=== PATIENT | male | born 1940 | race Caucasian/White ===

== ENCOUNTER 2020-12-23 20:30 | Inpatient (IN) | payer OTHER, MEDICARE, BC ==
[~2020-12-23] VITALS: Ht 182.9 cm; Wt 77.7 kg
[2020-12-23 20:20] VITALS: BP 171/77
[2020-12-23] MEDS: IBUPROFEN 400 MG TABLET. PO SCH (22:30)
[2020-12-23] MEDS: traZODone 50 MG TABLET. PO SCH (22:54)
[2020-12-23] MEDS: HYDROcodone/APAP 5/325MG 1 TAB TABLET PO SCH (22:54)
[2020-12-23 23:00] VITALS: BP 181/88
[2020-12-24] MEDS: HYDROcodone/APAP 7.5/325MG 1 TAB TABLET PO PRN ×2 (02:46→20:21)
[2020-12-24 03:00] VITALS: BP 169/75
[2020-12-24 07:23] VITALS: BP 191/83
[2020-12-24] MEDS: IBUPROFEN 400 MG TABLET. PO SCH ×4 (10:30→21:59)
[2020-12-24] MEDS: HYDROcodone/APAP 5/325MG 1 TAB TABLET PO SCH ×4 (10:31→21:00)
[2020-12-24 10:40] VITALS: BP 177/77
[2020-12-24] MEDS ORDERED: MORPHINE SULFATE 2 MG/ML VIAL. IV PRN (12:00)
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
[2020-12-24] MEDS ORDERED: UBIQ75CA PO (13:01)
[2020-12-24] MEDS ORDERED: MV-M1TAB7 PO (13:01)
[2020-12-24] MEDS ORDERED: OMEG-81 PO (13:01)
[2020-12-24] MEDS ORDERED: TRAZ-118 PO (13:01)
[2020-12-24] MEDS ORDERED: DOCU-109 PO (13:01)
[2020-12-24] MEDS ORDERED: [UNRECOGNIZED DRUG - CODE] PO (13:01)
[2020-12-24] MEDS ORDERED: ASCO500C9 PO (13:01)
[2020-12-24] MEDS ORDERED: CYAN50TA PO (13:01)
[2020-12-24] MEDS ORDERED: MELA1TAB44 PO (13:01)
[2020-12-24] MEDS ORDERED: CURC10PO MC (13:01)
[2020-12-24] MEDS ORDERED: CEPH500C PO (13:01)
[2020-12-24] MEDS ORDERED: OMEP20CA16 PO ×2 (13:01)
[2020-12-24] MEDS ORDERED: MAGN400C PO (13:01)
[2020-12-24] MEDS ORDERED: GLUC-117 PO (13:01)
[2020-12-24] MEDS ORDERED: ALFU10TA4 PO (13:01)
[2020-12-24] MEDS ORDERED: LACT1CAP37 PO (13:01)
[2020-12-24] MEDS ORDERED: DUTA0.5C PO (13:01)
[2020-12-24] MEDS ORDERED: MULT-245 PO (13:01)
[2020-12-24] MEDS ORDERED: [UNRECOGNIZED DRUG - OTHER] PO (13:01)
[2020-12-24] MEDS ORDERED: [UNRECOGNIZED DRUG - OTHER] PO (13:01)
[2020-12-24] MEDS ORDERED: MIRA25TA PO (13:01)
[2020-12-24 14:22] VITALS: BP 164/74
[2020-12-24] MEDS: POLYETHYLENE GLYCOL 3350 17 GM PACKET. PO SCH (17:11)
[2020-12-24 19:00] VITALS: BP 207/94
--- NOTE | 2020-12-24 20:00 | NUR ---
Day shift RN adressed 2 lacerrated wound on right forearm ,foam applied, will consult wound nurse.
[2020-12-24] MEDS: cloNIDine HCL 0.2 MG TABLET PO SCH (20:18)
[2020-12-24] MEDS: traZODone 50 MG TABLET. PO SCH (20:18)
[2020-12-24] MEDS: DOCUSATE SODIUM 100 MG CAPSULE. PO SCH (20:18)
[2020-12-24] MEDS ORDERED: MELATONIN PO SCH (21:00)
[2020-12-24 23:00] VITALS: BP 147/77
[2020-12-25 02:59] VITALS: BP 169/82
[2020-12-25 07:11] VITALS: BP 182/86
[2020-12-25] MEDS: TAMSULOSIN 0.4 MG CAP.ER.24H. PO SCH (08:05)
[2020-12-25] MEDS: ASCORBIC ACID 1,000 MG TABLET PO SCH (08:05)
[2020-12-25] MEDS: HYDROcodone/APAP 5/325MG 1 TAB TABLET PO SCH ×4 (08:05→20:01)
[2020-12-25] MEDS: cloNIDine HCL 0.2 MG TABLET PO SCH ×3 (08:05→20:01)
[2020-12-25] MEDS: IBUPROFEN 400 MG TABLET. PO SCH ×4 (08:05→18:49)
[2020-12-25] MEDS: DOCUSATE SODIUM 100 MG CAPSULE. PO SCH ×3 (08:05→20:38)
[2020-12-25] MEDS: PANTOPRAZOLE 40 MG TABLET.DR. PO SCH (08:05)
[2020-12-25] MEDS: POLYETHYLENE GLYCOL 3350 17 GM PACKET. PO SCH (08:06)
[2020-12-25] MEDS: OMEGA-3 FATTY ACIDS/FISH OIL 1,000 MG CAPSULE. PO SCH (08:06)
[2020-12-25] MEDS: NON FORMULARY ITEM (Mirabegron (Myrbetriq) 50 MG) PO SCH (08:18)
[2020-12-25] MEDS: DUTASTERIDE 0.5 MG CAPSULE PO SCH (08:18)
[2020-12-25 08:41] LABS: BASO % 1 % (0-3); EOS # 0.2 x10^3/uL (0.0-0.7); EOS % 6 % (0-3); HEMOGLOBIN 13.6 g/dL (13.0-17.5); LYMPH # 0.6 x10^3/uL (1.0-4.8); LYMPH % 15 % (24-48); MEAN CORPUSCULAR HEMOGLOBIN 33 pg (25-35); MEAN CORPUSCULAR HGB CONC 35 g/dL (31-37); MEAN CORPUSCULAR VOLUME 95 fL (79-100); MONO # 0.4 x10^3/uL (0.0-1.1); MONO % 10 % (0-9); NEUT # 2.7 x10^3/uL (1.8-7.7); NEUT % 68 % (31-73); PLATELET COUNT 177 x10^3/uL (140-400); RED BLOOD COUNT 4.12 x10^6/uL (4.30-5.70); RED CELL DISTRIBUTION WIDTH 13.8 % (11.5-14.5); WHITE BLOOD COUNT 3.9 x10^3/uL (4.0-11.0)
[2020-12-25 08:48] LABS: CALCIUM 8.8 mg/dL (8.5-10.1); CREATININE 1.1 mg/dL (0.7-1.3); GFR 64.1; POTASSIUM 3.7 mmol/L (3.5-5.1)
[2020-12-25 10:34] VITALS: BP 152/76
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
[2020-12-25 14:21] VITALS: BP 108/54
[2020-12-25 19:00] VITALS: BP 131/59
--- NOTE | 2020-12-25 19:03 | NUR ---
patient refused to have skin tears pictured or dressed.
[2020-12-25] MEDS: traZODone 50 MG TABLET. PO SCH (20:01)
[2020-12-25] MEDS ORDERED: traZODone 50 MG TABLET. PO PRN (20:30)
[2020-12-26] VITALS (10 sets, daily range): BP systolic 106–199; BP diastolic 52–100
[2020-12-26] MEDS: PANTOPRAZOLE 40 MG TABLET.DR. PO SCH (07:30)
[2020-12-26 07:42] LABS: BASO % 1 % (0-3); EOS # 0.3 x10^3/uL (0.0-0.7); EOS % 7 % (0-3); HEMATOCRIT 37.4 % (39.0-53.0); HEMOGLOBIN 12.9 g/dL (13.0-17.5); LYMPH # 0.6 x10^3/uL (1.0-4.8); LYMPH % 15 % (24-48); MEAN CORPUSCULAR HEMOGLOBIN 33 pg (25-35); MEAN CORPUSCULAR HGB CONC 35 g/dL (31-37); MEAN CORPUSCULAR VOLUME 94 fL (79-100); MONO # 0.4 x10^3/uL (0.0-1.1); MONO % 10 % (0-9); NEUT # 2.7 x10^3/uL (1.8-7.7); NEUT % 67 % (31-73); PLATELET COUNT 173 x10^3/uL (140-400); RED BLOOD COUNT 3.97 x10^6/uL (4.30-5.70)
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
[2020-12-26 08:02] LABS: CALCIUM 8.7 mg/dL (8.5-10.1); CREATININE 1.1 mg/dL (0.7-1.3); GFR 64.1; POTASSIUM 4.1 mmol/L (3.5-5.1)
[2020-12-26] MEDS: OMEGA-3 FATTY ACIDS/FISH OIL 1,000 MG CAPSULE. PO SCH (09:00)
[2020-12-26] MEDS: TAMSULOSIN 0.4 MG CAP.ER.24H. PO SCH (09:00)
[2020-12-26] MEDS: DUTASTERIDE 0.5 MG CAPSULE PO SCH (09:00)
[2020-12-26] MEDS: ASCORBIC ACID 1,000 MG TABLET PO SCH (09:00)
[2020-12-26] MEDS: IBUPROFEN 400 MG TABLET. PO SCH ×4 (09:00→21:00)
[2020-12-26] MEDS: POLYETHYLENE GLYCOL 3350 17 GM PACKET. PO SCH (09:00)
[2020-12-26] MEDS: DOCUSATE SODIUM 100 MG CAPSULE. PO SCH ×3 (09:00→19:48)
[2020-12-26] MEDS: NON FORMULARY ITEM (Mirabegron (Myrbetriq) 50 MG) PO SCH (09:00)
[2020-12-26 09:06] LABS: PROTHROMBIN TIME PATIENT 13.8 SEC (11.7-14.0)
--- NOTE | 2020-12-26 10:19 | NUR ---
SW following. Discussed with RN, pt from home alone, room air, regular diet, rapid COVID-19 negative. Per RN, pt not having a kyphoplasty and can discharge home today. RN advised no SW needs at this time. RUIZ will continue to follow. Addendum: 12/26/20 at 1224 by MARIAJOSE GOODRICH SW Correction - pt is having a kyphoplasty today, and can still discharge home afterwards. RUIZ will continue to follow.
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
--- NOTE | 2020-12-26 11:51 | RAD ---
EXAMINATION: Magnetic resonance imaging (MRI) of the lumbar spine without contrast 12/26/2020 8:19 AM HISTORY: Compression fracture. TECHNIQUE: Multiplanar multi-weighted MRI of the lumbar spine was performed without intravenous contr ast using the standard lumbar spine protocol. Contrast information: None administered. COMPARISON: CT lumbar spine 12/23/2020. FINDINGS: Alignment of the lumbar spine is normal. Superimposed compression fracture is identified at L2 with 2 5 percent height loss. Marrow edema is identified diffusely with fluid along the superior endplate of L2 suggestive of a liquefied hematoma. There is minimal retropulsion of the superior endplate withou t associated spinal canal stenosis. Conus medullaris terminating at L1. Distal spinal cord signal int ensity is normal in all sequences. There is heterogeneous appearance of the marrow. Osseous hemangiom a is identified at T12. There is mild disc height loss at L4-L5 and L5-S1. There is disc desiccation at all levels sparing L5-S1. There is minimal prevertebral edema at L1-L2. No disruption of the poste rior ligamentous complex. No epidural hematoma is identified. Abdominal aorta is normal in caliber. No suspicious retroperitoneal abnormality is identified. There is mild atrophy of the paraspinal musculature. Kidneys are normal in appearance. Visualized portions of the sacrum appear intact. L1-L2: Mild disc bulge. Mild facet arthropathy. Mild bilateral neuroforaminal stenosis. Mild spinal c anal stenosis. L2-L3: Mild disc bulge with central annular fissure. No significant facet arthropathy. Mild left neur oforaminal stenosis. Mild spinal canal stenosis. L3-L4: There is a mild disc bulge with left foraminal disc protrusion. Mild facet arthropathy. Mild l eft foraminal stenosis. Mild spinal canal stenosis. L4-L5: Moderate disc bulge central annular fissure. Mild facet arthropathy. Moderate bilateral neurof oraminal stenosis. Mild spinal canal stenosis. There is mild left lateral recess stenosis. L5-S1: Disc is normal in configuration. Mild facet arthropathy. No neuroforaminal or spinal canal hernandez nosis. IMPRESSION: Superior endplate compression fracture at L2 with 25 percent height loss. Minimal retropulsion withou t significant paraspinal hematoma or epidural hematoma. Prevertebral edema is noted. No disruption of posterior ligamentous complex. Electronically signed by: Sada Rajan MD (12/26/2020 11:48 AM) [id number]
[2020-12-26] MEDS ORDERED: ceFAZolin SODIUM IV Push 1 GM VIAL. IVP ONE ×2 (13:44→14:45)
[2020-12-26] MEDS ORDERED: fentaNYL PF VIAL 100 MCG/2 ML VIAL ONE (13:44)
[2020-12-26] MEDS ORDERED: MIDAZOLAM HCL/PF 5 MG/5 ML VIAL. ONE (13:44)
[2020-12-26] MEDS ORDERED: LIDOCAINE WITH 8.4% SOD BICARB 3 ML DISP.SYRIN. ONE (13:45)
[2020-12-26] MEDS ORDERED: IOHEXOL 240 MG/ML 50ML VIAL. ONE (13:45)
[2020-12-26] MEDS: cloNIDine HCL 0.2 MG TABLET PO SCH ×3 (14:00→19:48)
[2020-12-26] MEDS ORDERED: hydrALAZINE 20 MG/ML VIAL. ONE (14:39)
[2020-12-26] MEDS ORDERED: hydrALAZINE 20 MG/ML VIAL. IVP ONE (14:45)
[2020-12-26] MEDS ORDERED: MIDAZOLAM HCL/PF 5 MG/5 ML VIAL. IV ONE (14:45)
[2020-12-26] MEDS ORDERED: CONTRAST GIVEN. MC PRN (14:45)
[2020-12-26] MEDS ORDERED: fentaNYL PF VIAL 100 MCG/2 ML VIAL IV ONE (14:45)
[2020-12-26] MEDS ORDERED: IOHEXOL 240 MG/ML 50ML VIAL. IJ ONE (14:45)
[2020-12-26] MEDS ORDERED: LIDOCAINE WITH 8.4% SOD BICARB 3 ML DISP.SYRIN. IJ ONE (14:45)
[2020-12-26] MEDS: HYDROcodone/APAP 5/325MG 1 TAB TABLET PO SCH ×4 (15:52→19:26)
--- NOTE | 2020-12-26 16:10 | RAD ---
Fluoroscopically guided kyphoplasty L2 Indication: compression fracture, pathologic in nature secondary to bone demineralization with severe back pain, refractory to conservative treatment measures, and limited activities of daily living. Fluoro time:8.3 Minutes Dose area product: 54 Gycm2 Moderate sedation: The patient was appropriately monitored by a qualified independent observer throughout the course of the moderate sedation. [id number] sedation time:50 minutes Consent: The risks and benefits of the procedure were discussed with the patient. Informed consent was obtained. The patient was brought to the fluoroscopy suite and placed in the prone position. A timeout procedure was performed. Preprocedural antibiotics were administered. Procedure: The overlying skin was prepped and draped in the usual sterile fashion. All elements of maximal sterile barrier technique including the use of a cap, mask, sterile gown, sterile gloves, large sterile sheet, appropriate hand hygiene, and 2% chlorhexidine for cutaneous antisepsis (or acceptable alternative antiseptic per current guidelines) were followed for this procedure. Using a left transpedicular approach, and direct fluoroscopic guidance, a trocar needle was advanced to the posterior third of the targeted L2 vertebral body. Vertebral augmentation balloon was then coaxially introduced through the needle, into the more central vertebral body and was deployed. A curved cement delivery needle was advanced into the contralateral vertebral body. Contrast opacified polymethylmethacrylate was then very slowly and carefully introduced through the vertebral augmentation needle, using strict fluoroscopic control. Once adequate filling had been achieved the needles were removed and manual pressure was held. No significant extravasation or complication was identified. Sterile dressing was applied. Patient tolerated the procedure well, without apparent complication. Impression: Fluoroscopically guided kyphoplasty, L2
[2020-12-26] MEDS ORDERED: METHOCARBAMOL 500 MG TABLET PO PRN (16:30)
[2020-12-26] MEDS ORDERED: HYDROcodone/APAP 10/325 1 TAB TABLET PO PRN (16:30)
--- NOTE | 2020-12-26 17:10 | NUR ---
Wound Care Pt refused wound care due to pain in his back, will try again tomorrow,
[2020-12-26] MEDS: traZODone 50 MG TABLET. PO SCH ×2 (19:49→21:00)
--- NOTE | 2020-12-26 21:00 | NUR ---
2100 dose of motrin given at 1920 per pt. request and 2100 dose of trazodone given at 1948 per pt's request.
[2020-12-27 03:00] VITALS: BP 108/53
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
[2020-12-27 07:00] VITALS: BP 120/58
[2020-12-27 08:42] LABS: BASO % 1 % (0-3); EOS # 0.2 x10^3/uL (0.0-0.7); EOS % 4 % (0-3); HEMATOCRIT 38.9 % (39.0-53.0); LYMPH # 0.6 x10^3/uL (1.0-4.8); LYMPH % 14 % (24-48); MEAN CORPUSCULAR HEMOGLOBIN 32 pg (25-35); MEAN CORPUSCULAR HGB CONC 34 g/dL (31-37); MEAN CORPUSCULAR VOLUME 95 fL (79-100); MONO # 0.5 x10^3/uL (0.0-1.1); MONO % 12 % (0-9); NEUT % 70 % (31-73); PLATELET COUNT 175 x10^3/uL (140-400); RED BLOOD COUNT 4.08 x10^6/uL (4.30-5.70); RED CELL DISTRIBUTION WIDTH 14.2 % (11.5-14.5); WHITE BLOOD COUNT 4.2 x10^3/uL (4.0-11.0)
[2020-12-27] MEDS: POLYETHYLENE GLYCOL 3350 17 GM PACKET. PO SCH (09:00)
[2020-12-27] MEDS: cloNIDine HCL 0.2 MG TABLET PO SCH (09:00)
[2020-12-27] MEDS: NON FORMULARY ITEM (Mirabegron (Myrbetriq) 50 MG) PO SCH (09:00)
[2020-12-27] MEDS: ASCORBIC ACID 1,000 MG TABLET PO SCH (09:00)
[2020-12-27] MEDS: HYDROcodone/APAP 5/325MG 1 TAB TABLET PO SCH (09:00)
[2020-12-27] MEDS: OMEGA-3 FATTY ACIDS/FISH OIL 1,000 MG CAPSULE. PO SCH ×2 (09:00→10:03)
[2020-12-27 09:01] LABS: CALCIUM 9.2 mg/dL (8.5-10.1); CREATININE 1.7 mg/dL (0.7-1.3); GFR 38.8; POTASSIUM 3.9 mmol/L (3.5-5.1)
[2020-12-27] MEDS: DUTASTERIDE 0.5 MG CAPSULE PO SCH (10:01)
[2020-12-27] MEDS: PANTOPRAZOLE 40 MG TABLET.DR. PO SCH (10:01)
[2020-12-27] MEDS: IBUPROFEN 400 MG TABLET. PO SCH (10:01)
[2020-12-27] MEDS: TAMSULOSIN 0.4 MG CAP.ER.24H. PO SCH (10:02)
[2020-12-27] MEDS: DOCUSATE SODIUM 100 MG CAPSULE. PO SCH (10:06)
--- NOTE | 2020-12-27 10:43 | PDOC3 ---
Discharge Summary Visit Information Date of Admission: Dec 24, 2020 Date of Discharge: Dec 27, 2020 Brief Hospital Course Allergies Allergies Coded Allergies Type Severity Reaction Last Updated Verified No Known Drug Allergies 12/23/20 No Vital Signs Vital Signs Date Time Temp Pulse Resp B/P (MAP) Pulse Ox O2 Delivery O2 Flow Rate FiO2 12/27/20 07:00 97.8 55 16 120/58 (78) 95 Room Air 97.8 12/26/20 14:55 2.0 Lab Results Laboratory Tests Test 12/25/20 19:08 12/26/20 06:05 12/27/20 07:20 Coronavirus (PCR) Not detected (Not Detected) SARS-CoV-2 Antigen (Rapid) Negative (NEGATIVE) White Blood Count 4.0 x10^3/uL (4.0-11.0) 4.2 x10^3/uL (4.0-11.0) Red Blood Count 3.97 x10^6/uL (4.30-5.70) 4.08 x10^6/uL (4.30-5.70) Hemoglobin 12.9 g/dL (13.0-17.5) 13.0 g/dL (13.0-17.5) Hematocrit 37.4 % (39.0-53.0) 38.9 % (39.0-53.0) Mean Corpuscular Volume 94 fL (79-100) 95 fL (79-100) Mean Corpuscular Hemoglobin 33 pg (25-35) 32 pg (25-35) Mean Corpuscular Hemoglobin Concent 35 g/dL (31-37) 34 g/dL (31-37) Red Cell Distribution Width 14.0 % (11.5-14.5) 14.2 % (11.5-14.5) Platelet Count 173 x10^3/uL (140-400) 175 x10^3/uL (140-400) Neutrophils (%) (Auto) 67 % (31-73) 70 % (31-73) Lymphocytes (%) (Auto) 15 % (24-48) 14 % (24-48) Monocytes (%) (Auto) 10 % (0-9) 12 % (0-9) Eosinophils (%) (Auto) 7 % (0-3) 4 % (0-3) Basophils (%) (Auto) 1 % (0-3) 1 % (0-3) Neutrophils # (Auto) 2.7 x10^3/uL (1.8-7.7) 3.0 x10^3/uL (1.8-7.7) Lymphocytes # (Auto) 0.6 x10^3/uL (1.0-4.8) 0.6 x10^3/uL (1.0-4.8) Monocytes # (Auto) 0.4 x10^3/uL (0.0-1.1) 0.5 x10^3/uL (0.0-1.1) Eosinophils # (Auto) 0.3 x10^3/uL (0.0-0.7) 0.2 x10^3/uL (0.0-0.7) Basophils # (Auto) 0.0 x10^3/uL (0.0-0.2) 0.0 x10^3/uL (0.0-0.2) Prothrombin Time 13.8 SEC (11.7-14.0) Prothromb Time International Ratio 1.1 (0.8-1.1) Sodium Level 142 mmol/L (136-145) 141 mmol/L (136-145) Potassium Level 4.1 mmol/L (3.5-5.1) 3.9 mmol/L (3.5-5.1) Chloride Level 107 mmol/L (98-107) 105 mmol/L (98-107) Carbon Dioxide Level 28 mmol/L (21-32) 25 mmol/L (21-32) Anion Gap 7 (6-14) 11 (6-14) Blood Urea Nitrogen 28 mg/dL (8-26) 38 mg/dL (8-26) Creatinine 1.1 mg/dL (0.7-1.3) 1.7 mg/dL (0.7-1.3) Estimated GFR (Cockcroft-Gault) 64.1 38.8 Glucose Level 87 mg/dL (70-99) 96 mg/dL (70-99) Calcium Level 8.7 mg/dL (8.5-10.1) 9.2 mg/dL (8.5-10.1) Laboratory Tests Test 12/27/20 07:20 White Blood Count 4.2 x10^3/uL (4.0-11.0) Red Blood Count 4.08 x10^6/uL (4.30-5.70) Hemoglobin 13.0 g/dL (13.0-17.5) Hematocrit 38.9 % (39.0-53.0) Mean Corpuscular Volume 95 fL (79-100) Mean Corpuscular Hemoglobin 32 pg (25-35) Mean Corpuscular Hemoglobin Concent 34 g/dL (31-37) Red Cell Distribution Width 14.2 % (11.5-14.5) Platelet Count 175 x10^3/uL (140-400) Neutrophils (%) (Auto) 70 % (31-73) Lymphocytes (%) (Auto) 14 % (24-48) Monocytes (%) (Auto) 12 % (0-9) Eosinophils (%) (Auto) 4 % (0-3) Basophils (%) (Auto) 1 % (0-3) Neutrophils # (Auto) 3.0 x10^3/uL (1.8-7.7) Lymphocytes # (Auto) 0.6 x10^3/uL (1.0-4.8) Monocytes # (Auto) 0.5 x10^3/uL (0.0-1.1) Eosinophils # (Auto) 0.2 x10^3/uL (0.0-0.7) Basophils # (Auto) 0.0 x10^3/uL (0.0-0.2) Sodium Level 141 mmol/L (136-145) Potassium Level 3.9 mmol/L (3.5-5.1) Chloride Level 105 mmol/L (98-107) Carbon Dioxide Level 25 mmol/L (21-32) Anion Gap 11 (6-14) Blood Urea Nitrogen 38 mg/dL (8-26) Creatinine 1.7 mg/dL (0.7-1.3) Estimated GFR (Cockcroft-Gault) 38.8 Glucose Level 96 mg/dL (70-99) Calcium Level 9.2 mg/dL (8.5-10.1) Brief Hospital Course Mr. Vitale is a 80 old male who presented with lumbar compression fracture. He had MRI of the spine that showed superior endplate compression fracture at L2 with 25 percent height loss. Consultations placed to PM&R and IR. He had fluoroscopically guided L2 kyphoplasty. He was discharged with 1 week Robaxin. Discharge Information Condition at Discharge: Stable Follow Up: Weeks Disposition/Orders: D/C to Home Scheduled Alfuzosin Hcl (Alfuzosin Hcl) 10 Mg Tab.er.24h, 10 MG PO DAILY for bph, (Reported) Entered as Reported by: JAMES PAIZ RN on 12/24/201300 Last Action: Converted on 12/24/201950 by PRITESH BALLARD Ascorbic Acid (Vitamin C) 500 Mg Capsule, 1,000 MG PO DAILY for bone health, (Reported) Entered as Reported by: JAMES PAIZ RN on 12/24/201300 Last Action: Converted on 12/24/201950 by PRITESH BALLARD Curcumin (Curcumin) 10 Gm Powder, 600 MG MC DAILY for anti-inflammatory, (Reported) Entered as Reported by: JAMES PAIZ RN on 12/24/201300 Last Action: New Order on 12/24/201300 by JAMES PAIZ RN Cyanocobalamin (Vitamin B-12) (Vitamin B-12) 50 Mcg Tablet, 6 MCG PO DAILY for Vitamin, (Reported) Entered as Reported by: JAMES PAIZ RN on 12/24/201300 Last Action: New Order on 12/24/201300 by JAMES PAIZ RN Docusate Sodium (Colace) 100 Mg Capsule, 2 CAP PO TID for Soften stools for 30 Days, #180 Ref 0 (Reported) Entered as Reported by: JAMES PAIZ RN on 12/24/201300 Last Action: Continued on 12/24/201927 by JAMES PAIZ RN Dutasteride (Avodart) 0.5 Mg Capsule, 0.5 MG PO DAILY for bph, (Reported) Entered as Reported by: JAMES PAIZ RN on 12/24/201300 Last Action: Continued on 12/24/201927 by JAMES PAIZ RN Glucosam/Chondroit/C/Manganese (Cosamin Ds Capsule) 1 Each Capsule, 3 EACH PO DAILY for joint health, (Reported) Entered as Reported by: JAMES PAIZ RN on 12/24/201300 Last Action: New Order on 12/24/201300 by JAMES PAIZ RN Lactobacillus Combo No.10 (Probiotic) 1 Each Capsule, 2 TAB PO DAILY for aid in digestion for 30 Days, #60 Ref 0 (Reported) Entered as Reported by: JAMES PAIZ RN on 12/24/201300 Last Action: New Order on 12/24/201300 by JAMES PAIZ RN Magnesium Oxide (Magnesium) 400 Mg Capsule, 1 CAP PO DAILY for vitamin for 30 Days, #30 Ref 0 (Reported) Entered as Reported by: JAMES PAIZ RN on 12/24/201300 Last Action: New Order on 12/24/201300 by JAMES PAIZ RN Melatonin (Melatonin) 1 Mg Tablet, 9 TAB PO QHS for sleep for 30 Days, #270 Ref 0 (Reported) Entered as Reported by: JAMES PAIZ RN on 12/24/201300 Last Action: Converted on 12/24/201927 by JAMES PAIZ RN Mirabegron (Myrbetriq) 50 Mg Tab.er.24h, 50 MG PO DAILY for overactive bladder, (Reported) Entered as Reported by: JAMES PAIZ RN on 12/24/201300 Last Action: Converted on 12/24/201927 by JAMES PAIZ RN Multivitamin (Multi Vitamin Daily) 1 Each Tablet, 1 TAB PO DAILY for multivitamin for 30 Days, #30 Ref 0 (Reported) Entered as Reported by: JAMES PAIZ RN on 12/24/201300 Last Action: New Order on 12/24/201300 by JAMES PAIZ RN Mv-Mn/Iron/Fa/Herbal Cmplx#190 (Vitamin D3 Complete Caplet) 1 Each Tablet, 2,000 INTLU PO DAILY for bone health, (Reported) Entered as Reported by: JAMES PAIZ RN on 12/24/201300 Last Action: New Order on 12/24/201300 by JAMES PAIZ RN [place]-3S/Dha/Epa/Fish Oil/D3 (Cardio [place] Benefits Softgel) 1 Each Capsule, 1,100 MG PO DAILY for heart health, (Reported) Entered as Reported by: JAMES PAIZ RN on 12/24/201300 Last Taken: 1,100 mg on Unknown Date & Time Last Action: New Order on 12/24/201300 by JAMES PAIZ RN Omeprazole (Omeprazole) 20 Mg Capsule.dr, 20 MG PO BIDACBL for GERD, (Reported) Entered as Reported by: JAMES PAIZ RN on 12/24/201300 Last Action: Converted on 12/24/201950 by PRITESH BALLARD Phytosterol/Om-3/Dha/Epa/Fish (Cardiosterol Capsule) 1 Each Capsule, 4 EACH PO DAILY for heart health, (Reported) Entered as Reported by: JAMES PAIZ RN on 12/24/201300 Last Action: Converted on 12/24/201950 by PRITESH BALLARD Trazodone Hcl (Trazodone Hcl) 50 Mg Tablet, 3 TAB PO QHS for sleep, #30 Ref 1 (Reported) Entered as Reported by: JAMES PAIZ RN on 12/24/201300 Last Action: Edited on 12/26/201914 by PA LOPEZ Ubiquinone (Ultra Coq10) 75 Mg Capsule, 300 MG PO DAILY for heart health, (Reported) Entered as Reported by: JAMES PAIZ RN on 12/24/201300 Last Action: New Order on 12/24/201300 by JAMES PAIZ RN Discontinued Medications Cephalexin (Cephalexin) 500 Mg Capsule, 2,000 MG PO PRN PRN for PER PROTOCOL, (Reported) Entered as Reported by: JAMES PAIZ RN on 12/24/201300 Last Action: New Order on 12/24/201300 by JAMES PAIZ RN Omeprazole (Omeprazole) 20 Mg Capsule.dr, 20 MG PO BIDACLD for GERD, (Reported) Entered as Reported by: JAMES PAIZ RN on 12/24/201300 Last Action: New Order on 12/24/201300 by JAMES PAIZ RN [cardio whey] , 1 TAB PO DAILY, (Reported) Entered as Reported by: JAMES PAIZ RN on 12/24/201300 Last Action: New Order on 12/24/201300 by JAMES PAIZ RN [magnesium w multivit] , 1 TAB PO DAILY, (Reported) Entered as Reported by: JAMES PAIZ RN on 12/24/201300 Last Action: New Order on 12/24/201300 by JAMES PAIZ RN Justicifation of Admission Dx: Justifications for Admission: Justification of Admission Dx: Yes (L2 compression fracture, physical debility) GERI FRANCO MD Dec 27, 2020 10:43
[2020-12-27 11:00] VITALS: BP 131/62
--- NOTE | 2020-12-27 11:06 | NUR ---
SS following up with discharge planning. SS reviewed pt chart and discussed with pt RN. Pt is currently on room air. COVID19 negative. No PT/OT needs. Discharge order on the chart for home with self care.
== END 2020-12-27 11:40 | disposition home or self-care (01) | DRG 517 ==
LOC: 4 NORTH 20:30
PROVIDERS: ADMIT Family Medicine; ATTEND Family Medicine
PROC: 0QS03ZZ Reposition Lumbar Vertebra, Percutaneous Approach (ICD-10-PCS; principal; 2020-12-23)
PROC: 0QU03JZ Supplement Lumbar Vertebra with Synthetic Substitute, Percutaneous Approach (ICD-10-PCS; 2020-12-23)
DX: M48.56XA Collapsed vertebra, not elsewhere classified, lumbar region, initial encounter for fracture (principal); M19.90 Unspecified osteoarthritis, unspecified site; M51.36 Other intervertebral disc degeneration, lumbar region; Z96.643 Presence of artificial hip joint, bilateral; Z20.822 Contact with and (suspected) exposure to COVID-19; Z83.3 Family history of diabetes mellitus
CPT/HCPCS: 22514; 36415; 72148; 80048; 85025; 85610; 87426; 99152; 99153; C1713; J0360; J0690; J2250; J3010; J3490; Q9966; U0003; G0378

== ENCOUNTER 2021-11-06 13:35 | Inpatient (IN) | payer MEDICARE, BC ==
[~2021-11-06] VITALS: Ht 182.9 cm; Wt 82.0 kg
[2021-11-06] VITALS (8 sets, daily range): BP systolic 122–149; BP diastolic 66–76
[~2021-11-06 13:35] MED LIST: ALFU10TA4 PO; ASCO500C9 PO; CEPH500C PO; CURC10PO MC; CYAN50TA PO; DOCU-109 PO; DUTA0.5C PO; GLUC-117 PO; LACT1CAP37 PO; MAGN400C PO; MELA1TAB44 PO; MIRA25TA PO; MULT-245 PO; MV-M1TAB7 PO; OMEG-81 PO; OMEP20CA16 PO; TRAZ-118 PO; UBIQ75CA PO; [UNRECOGNIZED DRUG - CODE] PO; [UNRECOGNIZED DRUG - OTHER] PO; [UNRECOGNIZED DRUG - OTHER] PO
[2021-11-06 14:14] LABS: BASO % 1 % (0-3); EOS # 0.1 x10^3/uL (0.0-0.7); EOS % 4 % (0-3); HEMATOCRIT 36.7 % (39.0-53.0); HEMOGLOBIN 12.8 g/dL (13.0-17.5); LYMPH # 0.5 x10^3/uL (1.0-4.8); LYMPH % 16 % (24-48); MEAN CORPUSCULAR HEMOGLOBIN 32 pg (25-35); MEAN CORPUSCULAR HGB CONC 35 g/dL (31-37); MEAN CORPUSCULAR VOLUME 92 fL (79-100); MONO # 0.3 x10^3/uL (0.0-1.1); MONO % 10 % (0-9); NEUT # 2.3 x10^3/uL (1.8-7.7); NEUT % 69 % (31-73); PLATELET COUNT 185 x10^3/uL (140-400); RED BLOOD COUNT 3.98 x10^6/uL (4.30-5.70); RED CELL DISTRIBUTION WIDTH 14.6 % (11.5-14.5); WHITE BLOOD COUNT 3.4 x10^3/uL (4.0-11.0)
[2021-11-06 14:23] LABS: CALCIUM 8.3 mg/dL (8.5-10.1); CREATININE 1.1 mg/dL (0.7-1.3); GFR 63.9; POTASSIUM 3.7 mmol/L (3.5-5.1)
[2021-11-06 14:27] LABS: ALBUMIN 3.3 g/dL (3.4-5.0); TOTAL BILIRUBIN 0.5 mg/dL (0.2-1.0); TOTAL PROTEIN 6.5 g/dL (6.4-8.2)
--- NOTE | 2021-11-06 14:45 | PHYS DOC ---
Past Medical History Past Medical History: Anxiety, GERD, Hypertension General Adult EDM: Chief Complaint: DIZZY/LIGHT HEADED HPI: HPI: Patient is a 81 year old male who presents to the ED today to be evaluated for bradycardia and syncope. Patient was [place] a local library, he was noted to be slumped over on a chair. EMS was called, when they arrived patient had a heart rate in the 20s. He was given atropine. Heart rate came up to the 50s. He arrives in the ED with a heart rate of high 40s-50. He states he was dizzy and states he never passed out. He states he takes blood pressure medicine but does not have a diagnosis of hypertension. He states he takes the medicine from a personal friend who is a doctor (Dr. Kessler) patient does not have the name of the medicine. Patient denies any chest pain or shortness of breath I spoke to patient's daughter Jaida, she states history of hypertension, anxiety and acid reflux Review of Systems: Review of Systems: Constitutional: Denies fever or chills. [] Eyes: Denies change in visual acuity. [] HENT: Denies nasal congestion or sore throat. [] Respiratory: Denies cough or shortness of breath. [] Cardiovascular: Reports syncope, bradycardia GI: Denies abdominal pain, nausea, vomiting, bloody stools or diarrhea. [] : Denies dysuria. [] Musculoskeletal: Denies back pain or joint pain. [] Integument: Denies rash. [] Neurologic: EMS reports possible syncope. Denies headache, focal weakness or sensory changes. [] ] Psychiatric: Denies depression or anxiety. [] Heart Score: C/O Chest Pain: N/A Risk Factors: Risk Factors: DM, Current or recent (<one month) smoker, HTN, HLP, family history of CAD, obesity. Risk Scores: Score 0 - 3: 2.5% MACE over next 6 weeks - Discharge Home Score 4 - 6: 20.3% MACE over next 6 weeks - Admit for Clinical Observation Score 7 - 10: 72.7% MACE over next 6 weeks - Early Invasive Strategies Allergies: Allergies: Allergies Coded Allergies Type Severity Reaction Last Updated Verified No Known Drug Allergies 12/23/20 No Physical Exam: PE: Constitutional: Well developed, well nourished, no acute distress, non-toxic appearance. [] HENT: Normocephalic, atraumatic, bilateral external ears normal, oropharynx moist, no oral exudates, nose normal. [] Eyes: PERRLA, EOMI, conjunctiva normal, no discharge. [] Neck: Normal range of motion, no tenderness, supple, no stridor. [] Cardiovascular: Bradycardia Lungs & Thorax: Bilateral breath sounds clear to auscultation [] Abdomen: Bowel sounds normal, soft, no tenderness, no masses, no pulsatile masses. [] Skin: Warm, dry, no erythema, no rash. [] Back: No tenderness, no CVA tenderness. [] Extremities: No tenderness, no cyanosis, no clubbing, ROM intact, no edema. [] Neurologic: Alert and oriented X 3, normal motor function, normal sensory function, no focal deficits noted. Cranial nerves II through XII intact Psychologic: Affect normal, judgement normal, mood normal. [] Current Patient Data: Labs: Laboratory Tests Test 11/06/21 13:50 11/06/21 13:56 White Blood Count 3.4 x10^3/uL (4.0-11.0) L Red Blood Count 3.98 x10^6/uL (4.30-5.70) L Hemoglobin 12.8 g/dL (13.0-17.5) L Hematocrit 36.7 % (39.0-53.0) L Mean Corpuscular Volume 92 fL (79-100) Mean Corpuscular Hemoglobin 32 pg (25-35) Mean Corpuscular Hemoglobin Concent 35 g/dL (31-37) Red Cell Distribution Width 14.6 % (11.5-14.5) H Platelet Count 185 x10^3/uL (140-400) Neutrophils (%) (Auto) 69 % (31-73) Lymphocytes (%) (Auto) 16 % (24-48) L Monocytes (%) (Auto) 10 % (0-9) H Eosinophils (%) (Auto) 4 % (0-3) H Basophils (%) (Auto) 1 % (0-3) Neutrophils # (Auto) 2.3 x10^3/uL (1.8-7.7) Lymphocytes # (Auto) 0.5 x10^3/uL (1.0-4.8) L Monocytes # (Auto) 0.3 x10^3/uL (0.0-1.1) Eosinophils # (Auto) 0.1 x10^3/uL (0.0-0.7) Basophils # (Auto) 0.0 x10^3/uL (0.0-0.2) Troponin I High Sensitivity 8 ng/L (4-75) VR-Npe-E-Type Natriuretic Peptide 95 pg/mL (0-449) Thyroid Stimulating Hormone (TSH) 3.246 uIU/mL (0.358-3.74) Sodium Level 134 mmol/L (136-145) L Potassium Level 3.7 mmol/L (3.5-5.1) Chloride Level 97 mmol/L (98-107) L Carbon Dioxide Level 28 mmol/L (21-32) Anion Gap 9 (6-14) Blood Urea Nitrogen 25 mg/dL (8-26) Creatinine 1.1 mg/dL (0.7-1.3) Estimated GFR (Cockcroft-Gault) 63.9 BUN/Creatinine Ratio 23 (6-20) H Glucose Level 92 mg/dL (70-99) Calcium Level 8.3 mg/dL (8.5-10.1) L Magnesium Level 2.0 mg/dL (1.8-2.4) Total Bilirubin 0.5 mg/dL (0.2-1.0) Aspartate Amino Transferase (AST) 14 U/L (15-37) L Alanine Aminotransferase (ALT) 20 U/L (16-63) Alkaline Phosphatase 76 U/L (46-116) Total Protein 6.5 g/dL (6.4-8.2) Albumin 3.3 g/dL (3.4-5.0) L Albumin/Globulin Ratio 1.0 (1.0-1.7) Lipase 59 U/L (73-393) L Laboratory Tests 11/06/21 13:50 Laboratory Tests 11/06/21 13:56 EKG: EK interpreted by Dr. Chu sinus rhythm heart rate 59 no STEMI [] Radiology/Procedures: Radiology/Procedures: []PROCEDURE: CT HEAD WO CONTRAST EXAMINATION: CT head without IV contrast INDICATION:81 years, Male, syncope. COMPARISON: None TECHNIQUE: Spiral acquisition of contiguous images from the skull base to the vertex were obtained. Soft tissue and bone window algorithms were reviewed. Exposure: One or more of the following individualized dose reduction techniques were utilized for this examination: 1. Automated exposure control 2. Adjustment of the mA and/or kV according to patient size 3. Use of iterative reconstruction technique. FINDINGS: Neither mass, midline shift, intracranial hemorrhage, acute ischemic changes, nor extraaxial fluid collections are seen. There is a area of hypoattenuation in the right frontal centrum semiovale, may represent a focus of late subacute or chronic infarct. Mild brain parenchymal volume loss. Supratentorial periv entricular white matter hypodensities, indeterminate but most likely representing chronic microangiopathic disease. The ventricular system is within normal limits of variation. Intracranial atherosclerotic disease. The paranasal sinuses, mastoid air cells, and middle ears are clear.The orbital contents appear within normal limits. Soft tissues are unremarkable. Calvarium is intact. IMPRESSION: 1. Hypoattenuating area in the right frontal subcortical white matter may represent late subacute or chronic infarct. Further evaluation with MRI may be considered. 2. Supratentorial periventricular white matter hypodensities, indeterminate but most likely representing chronic microangiopathic disease. These findings were discussed with the ED provider at 11/06/2021 3:[address] Mercado Electronically signed by: Selina Mercado DO (11/06/2021 3:04 PM) [facility] DICTATED and SIGNED BY: SELINA MERCADO DO DATE: 11/06/21 [id number] 0 PROCEDURE: PORTABLE CHEST 1V XR CHEST 1V History: Reason: syncope / Spl. Instructions: / History: Comparison: None. Findings: Linear left basilar opacities. No pleural effusion. No pneumothorax. Normal h eart size. Chronic ununited left mid clavicular fracture. Distal right clavicular resorption or postoperative changes. Impression: 1. Mild linear left basilar opacities, likely atelectasis. Electronically signed by: Barrington Shah DO (11/06/2021 2:53 PM) [id number] DICTATED and SIGNED BY: BARRINGTON SHAH DO DATE: 11/06/21 [id number] 0 Course & Med Decision Making: Course & Med Decision Making Pertinent Labs and Imaging studies reviewed. (See chart for details) This is a 81-year-old male patient presenting to the ED today via EMS after being found slumped over in the [place] bradycardia with a heart rate in the 20s. Was given atropine. Heart rates in the 40-50s on arrival. Patient awake alert oriented x3. Vitals on arrival to the ED temperature 97.5, heart rate 58, respirations 16, blood pressure 137/62, O2 sats 96% CBC with a WBC of 3.4, hemoglobin 12.8, hematocrit 36.7. CMP with nothing acute. Chest x-ray is negative. CT of the head noted for right frontal subcortical white matter may represent late subacute or chronic infarct NIH scale is negative. Spoke with Dr. Dorado who will f/u with patient Spoke with Dr. Garcia who accepted patient for admission. Spoke with Jeanine Cardiology DISTRICT REPRESENTATIVE who will f/u with patient. Stacy Disclaimer: Stacy Disclaimer: This electronic medical record was generated, in whole or in part, using a voice recognition dictation system. Departure Departure Impression: Primary Impression: Syncope Qualified Codes: R55 - Syncope and collapse Additional Impressions: Bradycardia CVA (cerebral vascular accident) Qualified Codes: I63.9 - Cerebral infarction, unspecified Disposition: 09 ADMITTED INPATIENT Condition: STABLE Referrals: OLIVE DESIR (PCP) CRISTIAN MARSH RESIDENT SERVICES SUPERVISOR Nov 06, 2021 14:45
--- NOTE | 2021-11-06 14:56 | RAD ---
XR CHEST 1V History: Reason: syncope / Spl. Instructions: / History: Comparison: None. Findings: Linear left basilar opacities. No pleural effusion. No pneumothorax. Normal heart size. Chronic ununi stephie left mid clavicular fracture. Distal right clavicular resorption or postoperative changes. Impression: 1. Mild linear left basilar opacities, likely atelectasis. Electronically signed by: Barrington Shah DO (11/06/2021 2:53 PM) [id number]
--- NOTE | 2021-11-06 15:06 | RAD ---
EXAMINATION: CT head without IV contrast INDICATION:81 years, Male, syncope. COMPARISON: None TECHNIQUE: Spiral acquisition of contiguous images from the skull base to the vertex were obtained. Soft tissue and bone window algorithms were reviewed. Exposure: One or more of the following individualized dose reduction techniques were utilized for thi s examination: 1. Automated exposure control 2. Adjustment of the mA and/or kV according to patient size 3. Use of iterative reconstruction technique. FINDINGS: Neither mass, midline shift, intracranial hemorrhage, acute ischemic changes, nor extraaxial fluid co llections are seen. There is a area of hypoattenuation in the right frontal centrum semiovale, may re present a focus of late subacute or chronic infarct. Mild brain parenchymal volume loss. Supratentori al periventricular white matter hypodensities, indeterminate but most likely representing chronic bety roangiopathic disease. The ventricular system is within normal limits of variation. Intracranial athe rosclerotic disease. The paranasal sinuses, mastoid air cells, and middle ears are clear.The orbital contents appear withi n normal limits. Soft tissues are unremarkable. Calvarium is intact. IMPRESSION: 1. Hypoattenuating area in the right frontal subcortical white matter may represent late subacute or chronic infarct. Further evaluation with MRI may be considered. 2. Supratentorial periventricular white matter hypodensities, indeterminate but most likely represen ting chronic microangiopathic disease. These findings were discussed with the ED provider at 11/06/2021 3:[address] Mercado Electronically signed by: Pablo Mercado DO (11/06/2021 3:04 PM) [facility]
[2021-11-06 17:17] LABS: BILIRUBIN,URINE NEGATIVE (NEG); CLARITY,URINE CLEAR; COLOR,URINE YELLOW; NITRITE,URINE NEGATIVE (NEG); PROTEIN,URINE NEGATIVE (NEG-TRACE)
[2021-11-06 17:26] LABS: BARBITURATES NEG (NEG); BENZODIAZEPINES POS (NEG); CANNABINOIDS NEG (NEG); COCAINE NEG (NEG); METHADONE NEG (NEG); OPIATES NEG (NEG); PHENCYCLIDINE NEG (NEG)
[2021-11-06] MEDS ORDERED: MORPHINE SULFATE 2 MG/ML INJ. IVP PRN (17:30)
[2021-11-06] MEDS ORDERED: ACETAMINOPHEN 325 MG TABLET. PO PRN (17:30)
[2021-11-06] MEDS ORDERED: ONDANSETRON PF 4 MG/2 ML VIAL. IVP PRN (17:30)
[2021-11-06 17:34] LABS: HYALINE CASTS, URINE MODERATE /HPF
[2021-11-06 17:35] LABS: BACTERIA,URINE 0 /HPF (0-FEW); WBC,URINE 0 /HPF (0-4)
[2021-11-06 17:40] LABS: AMPHETAMINE/METHAMPHETAMINE NEG (NEG)
[2021-11-06] MEDS ORDERED: POTASSIUM CHLORIDE 20 MEQ TABLET.ER. PO ONE (17:45)
--- NOTE | 2021-11-06 18:15 | PDOC1 ---
History and Physical Date of Admission Date of Admission DATE: 11/06/21 TIME: 18:10 Identification/Chief Complaint Chief Complaint syncope Source Source: Chart review, Patient History of Present Illness History of Present Illness Mr. Gutierrez is a 81 year old male admit [place] a sync[place]. Ani slumped over in a chair, not responsive, EMS called, HR was < 20 there, atropine given HR then 40's is about 55 now. sinus He states he was dizzy and states he never passed out. He states he takes blood pressure medicine but does not have a diagnosis of hypertension. 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 his primary care is Dr. Kessler, he sees him at [place] Past Medical History Past Medical History htn, anxiety, GERD Cardiovascular: HTN Musculoskeletal: low back pain ENT: No pertinent hx Renal/: No pertinent hx Endocrine: No pertinent hx Dermatology: No pertinent hx Past Surgical History Past Surgical History: No pertinent history Family History Family History: No Significant Social History Smoke: No ALCOHOL: none Drugs: None Current Problem List Problem List Problems Medical Problems: (1) Bradycardia Status: Acute (2) CVA (cerebral vascular accident) Status: Acute (3) Syncope Status: Acute Current Medications Current Medications Current Medications Potassium Chloride (Klor-Con) 40 meq 1X ONCE PO ; Start 11/06/21 at 17:45; Stop 11/06/21 at 17:46; Status DC Ondansetron HCl (Zofran) 4 mg PRN Q8HRS PRN IVP NAUSEA/VOMITING; Start 11/06/21 at 17:30; Stop 11/07/21 at 17:29 Morphine Sulfate (Morphine Sulfate) 2 mg PRN Q2HR PRN IVP PAIN; Start 11/06/21 at 17:30; Stop 11/07/21 at 17:29 Acetaminophen (Tylenol) 650 mg PRN Q4HRS PRN PO FEVER > 100.3'F; Start 11/06/21 at 17:30; Stop 11/07/21 at 17:29 Docusate Sodium (Colace) 200 mg TID PO ; Start 11/06/21 at 21:00 Dutasteride (Avodart) 0.5 mg DAILY PO ; Start 11/07/21 at 09:00 Mirabegron (Myrbetriq) 50 mg DAILY PO ; Start 11/07/21 at 09:00 Trazodone HCl (Desyrel) 150 mg QHS PO ; Start 11/06/21 at 21:00 Tamsulosin HCl (Flomax) 0.4 mg DAILY PO ; Start 11/07/21 at 09:00 Pantoprazole Sodium (Protonix) 40 mg BIDACBL PO ; Start 11/07/21 at 07:30 Active Scripts Active Reported Trazodone Hcl 50 Mg Tablet 3 Tab PO QHS Melatonin 1 Mg Tablet 9 Tab PO QHS 30 Days Curcumin 10 Gm Powder 600 Mg MC DAILY Colace (Docusate Sodium) 100 Mg Capsule 2 Cap PO TID 30 Days Vitamin C (Ascorbic Acid) 500 Mg Capsule 1,000 Mg PO DAILY Vitamin B-12 (Cyanocobalamin (Vitamin B-12)) 50 Mcg Tablet 6 Mcg PO DAILY Ultra Coq10 (Ubiquinone) 75 Mg Capsule 300 Mg PO DAILY Multi Vitamin Daily (Multivitamin) 1 Each Tablet 1 Tab PO DAILY 30 Days Omeprazole 20 Mg Capsule.dr 20 Mg PO BIDACBL Magnesium (Magnesium Oxide) 400 Mg Capsule 1 Cap PO DAILY 30 Days Myrbetriq (Mirabegron) 50 Mg Tab.er.24h 50 Mg PO DAILY Vitamin D3 Complete Caplet (Mv-Mn/Iron/Fa/Herbal Cmplx#190) 1 Each Tablet 2,000 Intlu PO DAILY Probiotic (Lactobacillus Combo No.10) 1 Each Capsule 2 Tab PO DAILY 30 Days Cosamin Ds Capsule (Glucosam/Chondroit/C/Manganese) 1 Each Capsule 3 Each PO DAILY Cardiosterol Capsule (Phytosterol/Om-3/Dha/Epa/Fish) 1 Each Capsule 4 Each PO DAILY Cardio Bul[place]itt Benefits Softgel ([place]-3S/Dha/Epa/Fish Oil/D3) 1 Each Capsule 1, 100 Mg PO DAILY Avodart (Dutasteride) 0.5 Mg Capsule 0.5 Mg PO DAILY Alfuzosin Hcl 10 Mg Tab.er.24h 10 Mg PO DAILY Allergies Allergies: Coded Allergies: No Known Drug Allergies (Unverified , 12/23/20) ROS General: No: Chills, Night Sweats, Fatigue, Malaise, Appetite, Other PSYCHOLOGICAL ROS: No: Anxiety, Behavioral Disorder, Concentration difficultie, Decreased libido, Depression, Disorientation, Hallucinations, Hostility, Irritablity, Memory difficulties, Mood Swings, Obsessive thoughts, Physical abuse, Sexual abuse, Sleep disturbances, Suicidal ideation, Other Eyes: No Blurry vision, No Decreased vision, No Double vision, No Dry eyes, No Excessive tearing, No Eye Pain, No Itchy Eyes, No Loss of vision, No Photophobia, No Scotomata, No Uses contacts, No Uses glasses, No Other HEENT: No: Heacaches, Visual Changes, Hearing change, Nasal congestion, Nasal discharge, Oral lesions, Sinus pain, Sore Throat, Epistaxis, Sneezing, Snoring, Tinnitus, Vertigo, Vocal changes, Other Respiratory: No: Cough, Hemoptysis, Orthopnea, Pleuritic Pain, Shortness of breath, SOB with excertion, Sputum Changes, Stridor, Tachypnea, Wheezing, Other Cardiovascular: No Chest Pain, No Palpitations, No Orthopnea, No Paroxysmal Noc. Dyspnea, No Edema, No Lt Headedness, No Other Gastrointestinal: No Nausea, No Vomiting, No Abdominal Pain, No Diarrhea, No Constipation, No Melena, No Hematochezia, No Other Genitourinary: No Dysuria, No Frequency, No Incontinence, No Hematuria, No Retention, No Discharge, No Urgency, No Pain, No Flank Pain, No Other, No , No , No , No , No , No , No Musculoskeletal: No Gait Disturbance, No Joint Pain, No Joint Stiffness, No Joint Swelling, No Muscle Pain, No Muscular Weakness, No Pain In:, No Swelling In:, No Other Neurological: No Behavorial Changes, No Bowel/Bladder ControlChng, No Confusion, No Dizziness, No Gait Disturbance, No Headaches, No Impaired Coord/balance, No Memory Loss, No Numbness/Tingling, No Seizures, No Speech Problems, No Tremors, No Visual Changes, No Weakness, No Other Skin: No Dry Skin, No Eczema, No Hair Changes, No Lumps, No Mole Changes, No Mottling, No Nail Changes, No Pruritus, No Rash, No Skin Lesion Changes, No Other, No Acne Physical Exam General: Alert, Oriented X3, Cooperative, No acute distress HEENT: Atraumatic, PERRLA, Mucous membr. moist/pink Lungs: Clear to auscultation, Normal air movement Heart: S1S2, RRR, no gallops, no murmurs, other (shaggy, sinus on tele, ) Abdomen: Normal bowel sounds, Soft Extremities: No clubbing, No cyanosis, No edema, Normal pulses Neuro: Normal speech, Normal tone, Sensation intact Psych/Mental Status: Mental status NL, Mood NL Vitals Vitals Vital Signs Date Time Temp Pulse Resp B/P (MAP) Pulse Ox O2 Delivery O2 Flow Rate FiO2 11/06/21 16:40 52 16 154/61 (92) 95 Room Air 11/06/21 13:35 97.5 97.5 Labs Labs Laboratory Tests Test 11/06/21 13:50 11/06/21 13:56 11/06/21 16:55 White Blood Count 3.4 x10^3/uL (4.0-11.0) Red Blood Count 3.98 x10^6/uL (4.30-5.70) Hemoglobin 12.8 g/dL (13.0-17.5) Hematocrit 36.7 % (39.0-53.0) Mean Corpuscular Volume 92 fL (79-100) Mean Corpuscular Hemoglobin 32 pg (25-35) Mean Corpuscular Hemoglobin Concent 35 g/dL (31-37) Red Cell Distribution Width 14.6 % (11.5-14.5) Platelet Count 185 x10^3/uL (140-400) Neutrophils (%) (Auto) 69 % (31-73) Lymphocytes (%) (Auto) 16 % (24-48) Monocytes (%) (Auto) 10 % (0-9) Eosinophils (%) (Auto) 4 % (0-3) Basophils (%) (Auto) 1 % (0-3) Neutrophils # (Auto) 2.3 x10^3/uL (1.8-7.7) Lymphocytes # (Auto) 0.5 x10^3/uL (1.0-4.8) Monocytes # (Auto) 0.3 x10^3/uL (0.0-1.1) Eosinophils # (Auto) 0.1 x10^3/uL (0.0-0.7) Basophils # (Auto) 0.0 x10^3/uL (0.0-0.2) Troponin I High Sensitivity 8 ng/L (4-75) YK-Mqn-R-Type Natriuretic Peptide 95 pg/mL (0-449) Thyroid Stimulating Hormone (TSH) 3.246 uIU/mL (0.358-3.74) Sodium Level 134 mmol/L (136-145) Potassium Level 3.7 mmol/L (3.5-5.1) Chloride Level 97 mmol/L (98-107) Carbon Dioxide Level 28 mmol/L (21-32) Anion Gap 9 (6-14) Blood Urea Nitrogen 25 mg/dL (8-26) Creatinine 1.1 mg/dL (0.7-1.3) Estimated GFR (Cockcroft-Gault) 63.9 BUN/Creatinine Ratio 23 (6-20) Glucose Level 92 mg/dL (70-99) Calcium Level 8.3 mg/dL (8.5-10.1) Magnesium Level 2.0 mg/dL (1.8-2.4) Total Bilirubin 0.5 mg/dL (0.2-1.0) Aspartate Amino Transf (AST/SGOT) 14 U/L (15-37) Alanine Aminotransferase (ALT/SGPT) 20 U/L (16-63) Alkaline Phosphatase 76 U/L (46-116) Total Protein 6.5 g/dL (6.4-8.2) Albumin 3.3 g/dL (3.4-5.0) Albumin/Globulin Ratio 1.0 (1.0-1.7) Lipase 59 U/L (73-393) Urine Collection Type Unknown Urine Color Yellow Urine Clarity Clear Urine pH 7.0 (<5.0-8.0) Urine Specific [place] 1.015 (1.000-1.030) Urine Protein Negative mg/dL (NEG-TRACE) Urine Glucose (UA) Negative mg/dL (NEG) Urine Ketones (Stick) Negative mg/dL (NEG) Urine Blood Negative (NEG) Urine Nitrite Negative (NEG) Urine Bilirubin Negative (NEG) Urine Urobilinogen Dipstick 1.0 mg/dL (0.2 mg/dL) Urine Leukocyte Esterase Negative (NEG) Urine RBC 1-2 /HPF (0-2) Urine WBC 0 /HPF (0-4) Urine Squamous Epithelial Cells Few /LPF Urine Bacteria 0 /HPF (0-FEW) Urine Hyaline Casts Moderate /HPF Urine Mucus Slight /LPF Urine Opiates Screen Neg (NEG) Urine Methadone Screen Neg (NEG) Urine Barbiturates Neg (NEG) Urine Phencyclidine Screen Neg (NEG) Urine Amphetamine/Methamphetamine Neg (NEG) Urine Benzodiazepines Screen Pos (NEG) Urine Cocaine Screen Neg (NEG) Urine Cannabinoids Screen Neg (NEG) Urine Ethyl Alcohol Neg (NEG) Laboratory Tests Test 11/06/21 13:50 11/06/21 13:56 11/06/21 16:55 White Blood Count 3.4 x10^3/uL (4.0-11.0) Red Blood Count 3.98 x10^6/uL (4.30-5.70) Hemoglobin 12.8 g/dL (13.0-17.5) Hematocrit 36.7 % (39.0-53.0) Mean Corpuscular Volume 92 fL (79-100) Mean Corpuscular Hemoglobin 32 pg (25-35) Mean Corpuscular Hemoglobin Concent 35 g/dL (31-37) Red Cell Distribution Width 14.6 % (11.5-14.5) Platelet Count 185 x10^3/uL (140-400) Neutrophils (%) (Auto) 69 % (31-73) Lymphocytes (%) (Auto) 16 % (24-48) Monocytes (%) (Auto) 10 % (0-9) Eosinophils (%) (Auto) 4 % (0-3) Basophils (%) (Auto) 1 % (0-3) Neutrophils # (Auto) 2.3 x10^3/uL (1.8-7.7) Lymphocytes # (Auto) 0.5 x10^3/uL (1.0-4.8) Monocytes # (Auto) 0.3 x10^3/uL (0.0-1.1) Eosinophils # (Auto) 0.1 x10^3/uL (0.0-0.7) Basophils # (Auto) 0.0 x10^3/uL (0.0-0.2) Troponin I High Sensitivity 8 ng/L (4-75) PD-Srt-F-Type Natriuretic Peptide 95 pg/mL (0-449) Thyroid Stimulating Hormone (TSH) 3.246 uIU/mL (0.358-3.74) Sodium Level 134 mmol/L (136-145) Potassium Level 3.7 mmol/L (3.5-5.1) Chloride Level 97 mmol/L (98-107) Carbon Dioxide Level 28 mmol/L (21-32) Anion Gap 9 (6-14) Blood Urea Nitrogen 25 mg/dL (8-26) Creatinine 1.1 mg/dL (0.7-1.3) Estimated GFR (Cockcroft-Gault) 63.9 BUN/Creatinine Ratio 23 (6-20) Glucose Level 92 mg/dL (70-99) Calcium Level 8.3 mg/dL (8.5-10.1) Magnesium Level 2.0 mg/dL (1.8-2.4) Total Bilirubin 0.5 mg/dL (0.2-1.0) Aspartate Amino Transf (AST/SGOT) 14 U/L (15-37) Alanine Aminotransferase (ALT/SGPT) 20 U/L (16-63) Alkaline Phosphatase 76 U/L (46-116) Total Protein 6.5 g/dL (6.4-8.2) Albumin 3.3 g/dL (3.4-5.0) Albumin/Globulin Ratio 1.0 (1.0-1.7) Lipase 59 U/L (73-393) Urine Collection Type Unknown Urine Color Yellow Urine Clarity Clear Urine pH 7.0 (<5.0-8.0) Urine Specific [place] 1.015 (1.000-1.030) Urine Protein Negative mg/dL (NEG-TRACE) Urine Glucose (UA) Negative mg/dL (NEG) Urine Ketones (Stick) Negative mg/dL (NEG) Urine Blood Negative (NEG) Urine Nitrite Negative (NEG) Urine Bilirubin Negative (NEG) Urine Urobilinogen Dipstick 1.0 mg/dL (0.2 mg/dL) Urine Leukocyte Esterase Negative (NEG) Urine RBC 1-2 /HPF (0-2) Urine WBC 0 /HPF (0-4) Urine Squamous Epithelial Cells Few /LPF Urine Bacteria 0 /HPF (0-FEW) Urine Hyaline Casts Moderate /HPF Urine Mucus Slight /LPF Urine Opiates Screen Neg (NEG) Urine Methadone Screen Neg (NEG) Urine Barbiturates Neg (NEG) Urine Phencyclidine Screen Neg (NEG) Urine Amphetamine/Methamphetamine Neg (NEG) Urine Benzodiazepines Screen Pos (NEG) Urine Cocaine Screen Neg (NEG) Urine Cannabinoids Screen Neg (NEG) Urine Ethyl Alcohol Neg (NEG) VTE Prophylaxis Ordered VTE Prophylaxis Devices: No VTE Pharmacological Prophylaxi: Yes Assessment/Plan Assessment/Plan syncope symptomatic bradycardia first degree heart block in sinus rhythm now consult CV admit for tele, may need pacer, BPH, anxiety, htn, insomina large dose trazodone Justifications for Admission Other Justification ESTEPHANIE SAMPSON MD Nov 06, 2021 18:15
--- NOTE | 2021-11-06 19:11 | NUR ---
1829- patient arrived from [place] via gurney. A/O x4 but pleasantly confused. HR in the 50's BP 167/78 O2 sat 98% on room air. Got patient settled, patient belongings inventoried and documented in the computer. Provided patient a food tray. He is in no apparent distress. Hand off report given to Andrey Srivastava.
[2021-11-06] MEDS: DOCUSATE SODIUM 100 MG CAPSULE. PO SCH (20:42)
[2021-11-06] MEDS ORDERED: traZODone 50 MG TABLET. PO SCH (21:00)
[2021-11-07] VITALS (17 sets, daily range): BP systolic 126–174; BP diastolic 63–89
--- NOTE | 2021-11-07 03:05 | RAD ---
EXAM: Bilateral carotid duplex with waveform analysis. CLINICAL HISTORY: chronic right frontal stroke . TECHNIQUE: Longitudinal and transverse sonographic images of the bilateral carotid arteries was perfo rmed utilizing grayscale, color and spectral Doppler techniques. COMPARISON: None FINDINGS: Right Carotid: Atherosclerotic plaque is present. Left Carotid: Atherosclerotic plaque is present Vertebrals: Right vertebral artery not visualized. Left vertebral artery demonstrates antegrade flow. Right: PSV CCA (cm/s): 81 PSV ICA (cm/s): 54 EDV ICA (cm/s): 21 PSV ECA (cm/s): 134 ICA/CCA Ratio: 0.6 Left: PSV CCA (cm/s): 49 PSV ICA (cm/s): 187 EDV ICA (cm/s): 20 PSV ECA (cm/s): 160 ICA/CCA Ratio: 3.8 IMPRESSION: 1. ICA velocities consistent with 50-69 percent stenosis on the left and less than 50 percent stenosi s on the right. 2. Right vertebral artery is not visualized and could be hypoplastic or occluded. This could be furth er characterized with CTA, as clinically warranted. Left vertebral artery demonstrates antegrade flow . Consensus Panel [place]-scale and Doppler US Criteria for Diagnosis of ICA Stenosis Degree of Stenosis (%) ICA PSV (Cm/sec) Plaque Estimate (%)* Normal <125 None <50 <125 <50 50-69 125-230 >50 >70 but < near occlusion >230 >50 Near occlusion High, low, or undetectable Visible Total occlusion Undetectable Visible, no detectable lumen *Plaque estimate (diameter reduction) with godoy-scale and color Doppler US Degree of Stenosis (%) ICA/CCA PSV Ratio ICA EDV (cm/sec) Normal <2.0 <40 <50 <2.0 <40 50-69 2.0-4.0 40-100 >70 but < near occlusion >4.0 >100 Near occlusion Variable Variable Total occlusion Not applicable Not applicable Electronically signed by: Justin Monae MD (11/07/2021 3:03 AM) [place]AN[place]
--- NOTE | 2021-11-07 03:06 | EKG ---
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
[2021-11-07] MEDS ORDERED: LISINOPRIL 10 MG TABLET PO SCH (08:00)
[2021-11-07] MEDS: PANTOPRAZOLE 40 MG TABLET.DR. PO SCH ×2 (08:23→12:38)
[2021-11-07] MEDS: DOCUSATE SODIUM 100 MG CAPSULE. PO SCH (08:28)
[2021-11-07] MEDS ORDERED: TAMSULOSIN 0.4 MG CAP.ER.24H. PO SCH (09:00)
[2021-11-07] MEDS ORDERED: DUTASTERIDE 0.5 MG CAPSULE PO SCH (09:00)
[2021-11-07] MEDS ORDERED: MIRABEGRON 25 MG TAB.ER.24H PO SCH (09:00)
[2021-11-07 10:06] LABS: BASO % 1 % (0-3); EOS # 0.1 x10^3/uL (0.0-0.7); EOS % 4 % (0-3); HEMATOCRIT 40.7 % (39.0-53.0); HEMOGLOBIN 14.2 g/dL (13.0-17.5); LYMPH # 0.6 x10^3/uL (1.0-4.8); LYMPH % 17 % (24-48); MEAN CORPUSCULAR HEMOGLOBIN 32 pg (25-35); MEAN CORPUSCULAR HGB CONC 35 g/dL (31-37); MEAN CORPUSCULAR VOLUME 92 fL (79-100); MONO # 0.3 x10^3/uL (0.0-1.1); MONO % 10 % (0-9); NEUT # 2.4 x10^3/uL (1.8-7.7); NEUT % 70 % (31-73); PLATELET COUNT 189 x10^3/uL (140-400); RED BLOOD COUNT 4.41 x10^6/uL (4.30-5.70); WHITE BLOOD COUNT 3.5 x10^3/uL (4.0-11.0)
--- NOTE | 2021-11-07 10:10 | PDOC2 ---
NEUROLOGY CONSULT Date of Service DOS: DATE: 11/07/21 TIME: 10:03 Reason for Consult Reason for Consult: Stroke on CT Referring Physician Referring Physician: Dr. Garcia PCP: Dr. Kessler Source Source: Chart review, Patient History of Present Illness History of Present Illness The patient is an 81-year-old right-handed male who [place]. He was unresponsive, emergency medical services found heart rate was less than 20. He was given atropine. Heart rate has been running in the 40s and 50s here. He does have an abnormal head CT as reviewed below. He denies any history of stroke, seizure, or head injury. He has had no falls. He denies headaches. Past Medical History Musculoskeletal: low back pain (L2 compression fracture) Renal/: Benign prostatic enlarg., Other (Neurogenic bladder) Past Surgical History Past Surgical History: Other (Kyphoplasty) Family History Family History: Other (Parkinson's) Social History Social History , lives in independent living, no tobacco, rare alcohol Current Medications Current Medications Current Medications Potassium Chloride (Klor-Con) 40 meq 1X ONCE PO Last administered on 11/06/21at 20:42; Start 11/06/21 at 17:45; Stop 11/06/21 at 17:46; Status DC Ondansetron HCl (Zofran) 4 mg PRN Q8HRS PRN IVP NAUSEA/VOMITING; Start 11/06/21 at 17:30; Stop 11/07/21 at 17:29 Morphine Sulfate (Morphine Sulfate) 2 mg PRN Q2HR PRN IVP PAIN; Start 11/06/21 at 17:30; Stop 11/07/21 at 17:29 Acetaminophen (Tylenol) 650 mg PRN Q4HRS PRN PO FEVER > 100.3'F; Start 11/06/21 at 17:30; Stop 11/07/21 at 17:29 Docusate Sodium (Colace) 200 mg TID PO Last administered on 11/07/21at 08:28; Start 11/06/21 at 21:00 Dutasteride (Avodart) 0.5 mg DAILY PO ; Start 11/07/21 at 09:00 Mirabegron (Myrbetriq) 50 mg DAILY PO Last administered on 11/07/21at 08:23; Start 11/07/21 at 09:00 Trazodone HCl (Desyrel) 150 mg QHS PO Last administered on 11/06/21at 20:46; Start 11/06/21 at 21:00 Tamsulosin HCl (Flomax) 0.4 mg DAILY PO Last administered on 11/07/21at 08:23; Start 11/07/21 at 09:00 Pantoprazole Sodium (Protonix) 40 mg BIDACBL PO Last administered on 11/07/21at 08:23; Start 11/07/21 at 07:30 Lisinopril (Prinivil) 10 mg DAILY PO Last administered on 11/07/21at 08:23; Start 11/07/21 at 08:00 Active Scripts Active Reported Trazodone Hcl 50 Mg Tablet 3 Tab PO QHS Melatonin 1 Mg Tablet 9 Tab PO QHS 30 Days Curcumin 10 Gm Powder 600 Mg MC DAILY Colace (Docusate Sodium) 100 Mg Capsule 2 Cap PO TID 30 Days Vitamin C (Ascorbic Acid) 500 Mg Capsule 1,000 Mg PO DAILY Vitamin B-12 (Cyanocobalamin (Vitamin B-12)) 50 Mcg Tablet 6 Mcg PO DAILY Ultra Coq10 (Ubiquinone) 75 Mg Capsule 300 Mg PO DAILY Multi Vitamin Daily (Multivitamin) 1 Each Tablet 1 Tab PO DAILY 30 Days Omeprazole 20 Mg Capsule.dr 20 Mg PO BIDACBL Magnesium (Magnesium Oxide) 400 Mg Capsule 1 Cap PO DAILY 30 Days Myrbetriq (Mirabegron) 50 Mg Tab.er.24h 50 Mg PO DAILY Vitamin D3 Complete Caplet (Mv-Mn/Iron/Fa/Herbal Cmplx#190) 1 Each Tablet 2,000 Intlu PO DAILY Probiotic (Lactobacillus Combo No.10) 1 Each Capsule 2 Tab PO DAILY 30 Days Cosamin Ds Capsule (Glucosam/Chondroit/C/Manganese) 1 Each Capsule 3 Each PO DAILY Cardiosterol Capsule (Phytosterol/Om-3/Dha/Epa/Fish) 1 Each Capsule 4 Each PO DAILY Cardio Carlton Benefits Softgel ([place]-3S/Dha/Epa/Fish Oil/D3) 1 Each Capsule 1,100 Mg PO DAILY Avodart (Dutasteride) 0.5 Mg Capsule 0.5 Mg PO DAILY Alfuzosin Hcl 10 Mg Tab.er.24h 10 Mg PO DAILY Allergies Allergies: Coded Allergies: No Known Drug Allergies (Unverified , 1/29/21) ROS Review of System Negative for fever, chills, weight loss, shortness of breath, chest pain, indigestion, hematochezia, melena, and dysuria. Full 14-point review of systems is negative. Physical Exam Physical Examination General: Well-developed, well-nourished, white male, in no acute distress HEENT: Normocephalic andatraumatic. Temporal arteriespulsatile and nontender. Neck: Supple without bruit, no meningismus Musculoskeletal: Stability:see neurologic. Gait exam:see neurologic. Tone:see neurologic.Strength:see neurologic. Neurological: Mental Status:intact, orientation, memory, attention span/concentration, language, fund of knowledge normal. Cranial Nerves:Pupils equal and reactive to light, extraocular movements areintact, visual villaseñor are full to confrontation. Facial sensation is normal. There is no facial asymmetry. Vestibulo-ocular reflex is intact. Palate elevates and tongue protrudes in midline. All other cranial related problems are negative except as mentioned before.Reflexes:2+ and symmetric with flexor plantar responses. Motor:5/5 strength with normal tone and bulk. Coordination:Finger-nose finger and exbi-ro-ldqy testing are normal. Rapid alternating movements and fine finger movements are intact. He does have a tendency for masked facies. Gait:Stiff, arthritic more than neurological. Sensory:Normal pinprick, vibration, light touch, proprioception. Vitals VITALS Vital Signs Date Time Temp Pulse Resp B/P (MAP) Pulse Ox O2 Delivery O2 Flow Rate FiO2 11/07/21 08:23 53 174/79 11/07/21 07:00 14 96 Room Air 11/07/21 04:00 97.0 97.0 Labs Labs Laboratory Tests Test 11/06/21 13:50 11/06/21 13:56 11/06/21 16:55 11/06/21 18:03 White Blood Count 3.4 x10^3/uL (4.0-11.0) Red Blood Count 3.98 x10^6/uL (4.30-5.70) Hemoglobin 12.8 g/dL (13.0-17.5) Hematocrit 36.7 % (39.0-53.0) Mean Corpuscular Volume 92 fL (79-100) Mean Corpuscular Hemoglobin 32 pg (25-35) Mean Corpuscular Hemoglobin Concent 35 g/dL (31-37) Red Cell Distribution Width 14.6 % (11.5-14.5) Platelet Count 185 x10^3/uL (140-400) Neutrophils (%) (Auto) 69 % (31-73) Lymphocytes (%) (Auto) 16 % (24-48) Monocytes (%) (Auto) 10 % (0-9) Eosinophils (%) (Auto) 4 % (0-3) Basophils (%) (Auto) 1 % (0-3) Neutrophils # (Auto) 2.3 x10^3/uL (1.8-7.7) Lymphocytes # (Auto) 0.5 x10^3/uL (1.0-4.8) Monocytes # (Auto) 0.3 x10^3/uL (0.0-1.1) Eosinophils # (Auto) 0.1 x10^3/uL (0.0-0.7) Basophils # (Auto) 0.0 x10^3/uL (0.0-0.2) Troponin I High Sensitivity 8 ng/L (4-75) HB-Wlp-D-Type Natriuretic Peptide 95 pg/mL (0-449) Thyroid Stimulating Hormone (TSH) 3.246 uIU/mL (0.358-3.74) Sodium Level 134 mmol/L (136-145) Potassium Level 3.7 mmol/L (3.5-5.1) Chloride Level 97 mmol/L (98-107) Carbon Dioxide Level 28 mmol/L (21-32) Anion Gap 9 (6-14) Blood Urea Nitrogen 25 mg/dL (8-26) Creatinine 1.1 mg/dL (0.7-1.3) Estimated GFR (Cockcroft-Gault) 63.9 BUN/Creatinine Ratio 23 (6-20) Glucose Level 92 mg/dL (70-99) Calcium Level 8.3 mg/dL (8.5-10.1) Magnesium Level 2.0 mg/dL (1.8-2.4) Total Bilirubin 0.5 mg/dL (0.2-1.0) Aspartate Amino Transf (AST/SGOT) 14 U/L (15-37) Alanine Aminotransferase (ALT/SGPT) 20 U/L (16-63) Alkaline Phosphatase 76 U/L (46-116) Total Protein 6.5 g/dL (6.4-8.2) Albumin 3.3 g/dL (3.4-5.0) Albumin/Globulin Ratio 1.0 (1.0-1.7) Lipase 59 U/L (73-393) Urine Collection Type Unknown Urine Color Yellow Urine Clarity Clear Urine pH 7.0 (<5.0-8.0) Urine Specific [place] 1.015 (1.000-1.030) Urine Protein Negative mg/dL (NEG-TRACE) Urine Glucose (UA) Negative mg/dL (NEG) Urine Ketones (Stick) Negative mg/dL (NEG) Urine Blood Negative (NEG) Urine Nitrite Negative (NEG) Urine Bilirubin Negative (NEG) Urine Urobilinogen Dipstick 1.0 mg/dL (0.2 mg/dL) Urine Leukocyte Esterase Negative (NEG) Urine RBC 1-2 /HPF (0-2) Urine WBC 0 /HPF (0-4) Urine Squamous Epithelial Cells Few /LPF Urine Bacteria 0 /HPF (0-FEW) Urine Hyaline Casts Moderate /HPF Urine Mucus Slight /LPF Urine Opiates Screen Neg (NEG) Urine Methadone Screen Neg (NEG) Urine Barbiturates Neg (NEG) Urine Phencyclidine Screen Neg (NEG) Urine Amphetamine/Methamphetamine Neg (NEG) Urine Benzodiazepines Screen Pos (NEG) Urine Cocaine Screen Neg (NEG) Urine Cannabinoids Screen Neg (NEG) Urine Ethyl Alcohol Neg (NEG) SARS-CoV-2 Antigen (Rapid) Negative (NEGATIVE) Test 11/06/21 20:00 11/06/21 22:58 Troponin I High Sensitivity 9 ng/L (4-75) 8 ng/L (4-75) Laboratory Tests Test 11/06/21 13:50 11/06/21 13:56 11/06/21 16:55 11/06/21 18:03 White Blood Count 3.4 x10^3/uL (4.0-11.0) Red Blood Count 3.98 x10^6/uL (4.30-5.70) Hemoglobin 12.8 g/dL (13.0-17.5) Hematocrit 36.7 % (39.0-53.0) Mean Corpuscular Volume 92 fL (79-100) Mean Corpuscular Hemoglobin 32 pg (25-35) Mean Corpuscular Hemoglobin Concent 35 g/dL (31-37) Red Cell Distribution Width 14.6 % (11.5-14.5) Platelet Count 185 x10^3/uL (140-400) Neutrophils (%) (Auto) 69 % (31-73) Lymphocytes (%) (Auto) 16 % (24-48) Monocytes (%) (Auto) 10 % (0-9) Eosinophils (%) (Auto) 4 % (0-3) Basophils (%) (Auto) 1 % (0-3) Neutrophils # (Auto) 2.3 x10^3/uL (1.8-7.7) Lymphocytes # (Auto) 0.5 x10^3/uL (1.0-4.8) Monocytes # (Auto) 0.3 x10^3/uL (0.0-1.1) Eosinophils # (Auto) 0.1 x10^3/uL (0.0-0.7) Basophils # (Auto) 0.0 x10^3/uL (0.0-0.2) Troponin I High Sensitivity 8 ng/L (4-75) WK-Bfd-L-Type Natriuretic Peptide 95 pg/mL (0-449) Thyroid Stimulating Hormone (TSH) 3.246 uIU/mL (0.358-3.74) Sodium Level 134 mmol/L (136-145) Potassium Level 3.7 mmol/L (3.5-5.1) Chloride Level 97 mmol/L (98-107) Carbon Dioxide Level 28 mmol/L (21-32) Anion Gap 9 (6-14) Blood Urea Nitrogen 25 mg/dL (8-26) Creatinine 1.1 mg/dL (0.7-1.3) Estimated GFR (Cockcroft-Gault) 63.9 BUN/Creatinine Ratio 23 (6-20) Glucose Level 92 mg/dL (70-99) Calcium Level 8.3 mg/dL (8.5-10.1) Magnesium Level 2.0 mg/dL (1.8-2.4) Total Bilirubin 0.5 mg/dL (0.2-1.0) Aspartate Amino Transf (AST/SGOT) 14 U/L (15-37) Alanine Aminotransferase (ALT/SGPT) 20 U/L (16-63) Alkaline Phosphatase 76 U/L (46-116) Total Protein 6.5 g/dL (6.4-8.2) Albumin 3.3 g/dL (3.4-5.0) Albumin/Globulin Ratio 1.0 (1.0-1.7) Lipase 59 U/L (73-393) Urine Collection Type Unknown Urine Color Yellow Urine Clarity Clear Urine pH 7.0 (<5.0-8.0) Urine Specific [place] 1.015 (1.000-1.030) Urine Protein Negative mg/dL (NEG-TRACE) Urine Glucose (UA) Negative mg/dL (NEG) Urine Ketones (Stick) Negative mg/dL (NEG) Urine Blood Negative (NEG) Urine Nitrite Negative (NEG) Urine Bilirubin Negative (NEG) Urine Urobilinogen Dipstick 1.0 mg/dL (0.2 mg/dL) Urine Leukocyte Esterase Negative (NEG) Urine RBC 1-2 /HPF (0-2) Urine WBC 0 /HPF (0-4) Urine Squamous Epithelial Cells Few /LPF Urine Bacteria 0 /HPF (0-FEW) Urine Hyaline Casts Moderate /HPF Urine Mucus Slight /LPF Urine Opiates Screen Neg (NEG) Urine Methadone Screen Neg (NEG) Urine Barbiturates Neg (NEG) Urine Phencyclidine Screen Neg (NEG) Urine Amphetamine/Methamphetamine Neg (NEG) Urine Benzodiazepines Screen Pos (NEG) Urine Cocaine Screen Neg (NEG) Urine Cannabinoids Screen Neg (NEG) Urine Ethyl Alcohol Neg (NEG) SARS-CoV-2 Antigen (Rapid) Negative (NEGATIVE) Test 11/06/21 20:00 11/06/21 22:58 Troponin I High Sensitivity 9 ng/L (4-75) 8 ng/L (4-75) Images Images CT head without IV contrast INDICATION:81 years, Male, syncope. COMPARISON: None TECHNIQUE: Spiral acquisition of contiguous images from the skull base to the vertex were obtained. Soft tissue and bone window algorithms were reviewed. Exposure: One or more of the following individualized dose reduction techniques were utilized for this examination: 1. Automated exposure control 2. Adjustment of the mA and/or kV according to patient size 3. Use of iterative reconstruction technique. FINDINGS: Neither mass, midline shift, intracranial hemorrhage, acute ischemic changes, nor extraaxial fluid collections are seen. There is a area of hypoattenuation in the right frontal centrum semiovale, may represent a focus of late subacute or chronic infarct. Mild brain parenchymal volume loss. Supratentorial periventricular white matter hypodensities, indeterminate but most likely representing chronic microangiopathic disease. The ventricular system is within normal limits of variation. Intracranial atherosclerotic disease. The paranasal sinuses, mastoid air cells, and middle ears are clear.The orbital contents appear within normal limits. Soft tissues are unremarkable. Calvarium is intact. IMPRESSION: 1. Hypoattenuating area in the right frontal subcortical white matter may represent late subacute or chronic infarct. Further evaluation with MRI may be considered. 2. Supratentorial periventricular white matter hypodensities, indeterminate but most likely representing chronic microangiopathic disease. DOPPLER CAROTID BILAT EXAM: Bilateral carotid duplex with waveform analysis. CLINICAL HISTORY: chronic right frontal stroke . TECHNIQUE: Longitudinal and transverse sonographic images of the bilateral carotid arteries was performed utilizing grayscale, color and spectral Doppler techniques. COMPARISON: None FINDINGS: Right Carotid: Atherosclerotic plaque is present. Left Carotid: Atherosclerotic plaque is present Vertebrals: Right vertebral artery not visualized. Left vertebral artery demonstrates antegrade flow. Right: PSV CCA (cm/s): 81 PSV ICA (cm/s): 54 EDV ICA (cm/s): 21 PSV ECA (cm/s): 134 ICA/CCA Ratio: 0.6 Left: PSV CCA (cm/s): 49 PSV ICA (cm/s): 187 EDV ICA (cm/s): 20 PSV ECA (cm/s): 160 ICA/CCA Ratio: 3.8 IMPRESSION: 1. ICA velocities consistent with 50-69 percent stenosis on the left and less than 50 percent stenosis on the right. 2. Right vertebral artery is not visualized and could be hypoplastic or occluded. This could be further characterized with CTA, as clinically warranted. Left vertebral artery demonstrates antegrade flow. Assessment/Plan Assessment/Plan Impression: Incidental finding of a right frontal stroke, appears chronic to me, radiologist calls it sub-acute to chronic. No clinical evidence of a stroke, this was a silent infarct. It may have been cardioembolic or due to intracranial vascular disease. No sign of carotid disease Right vertebral artery abnormalities is not clinically relevant and would be treated medically even if it were positive. Evidence of some mild Parkinsonism, not requiring treatment Bradycardia Recommendations: Carotid Doppler studies, already done and reviewed above Aspirin Check lipids and start statin Otherwise per cardiology Thank you for letting me help with the patient's care. ROSA CORTÉS MD Nov 07, 2021 10:10
[2021-11-07 10:18] LABS: ALBUMIN 3.6 g/dL (3.4-5.0); CALCIUM 8.6 mg/dL (8.5-10.1); GFR 71.4; POTASSIUM 3.8 mmol/L (3.5-5.1); TOTAL BILIRUBIN 0.7 mg/dL (0.2-1.0); TOTAL PROTEIN 7.3 g/dL (6.4-8.2)
--- NOTE | 2021-11-07 10:28 | NUR ---
SS following for discharge planning. SS reviewed pt chart and discussed with pt RN. Pt is from the [facility], ; fax [phone]. Pt is currently on room air. COVID19 negative on rapid test. Cardiology and Neurology consulted. PT/OT ordered. SS will continue to follow for discharge planning. Addendum: 11/07/21 at 1629 by BAYLEE SHELTON SS Discharge orders received for return to the [facility]. Discharge orders and clinical phoned and faxed to the [facility]. RN spoke with [facility] RN, Muriel, , and gave report. Family to transport pt to home.
[2021-11-07] MEDS ORDERED: ASPIRIN CHEWABLE 81 MG TABLET. PO SCH (10:30)
--- NOTE | 2021-11-07 11:10 | PDOC3 ---
Discharge Summary Visit Information Date of Admission: Nov 06, 2021 Date of Discharge: Nov 07, 2021 Final Diagnosis syncope bradycardia to 18 in field, prob heart block HR sinus 55 now BPH, anxiety, htn, insomnia large dose trazodone for insomnia at home weakness, walks with a cane cognitive decline Problems Medical Problems: (1) Bradycardia Status: Acute (2) CVA (cerebral vascular accident) Status: Acute (3) Syncope Status: Acute Brief Hospital Course Allergies Allergies Coded Allergies Type Severity Reaction Last Updated Verified No Known Drug Allergies 12/23/20 No Vital Signs Vital Signs Date Time Temp Pulse Resp B/P (MAP) Pulse Ox O2 Delivery O2 Flow Rate FiO2 11/07/21 10:00 52 18 126/63 (84) 100 Room Air 11/07/21 08:00 97.7 97.7 Lab Results Laboratory Tests Test 11/06/21 13:50 11/06/21 13:56 11/06/21 16:55 11/06/21 18:03 White Blood Count 3.4 x10^3/uL (4.0-11.0) Red Blood Count 3.98 x10^6/uL (4.30-5.70) Hemoglobin 12.8 g/dL (13.0-17.5) Hematocrit 36.7 % (39.0-53.0) Mean Corpuscular Volume 92 fL (79-100) Mean Corpuscular Hemoglobin 32 pg (25-35) Mean Corpuscular Hemoglobin Concent 35 g/dL (31-37) Red Cell Distribution Width 14.6 % (11.5-14.5) Platelet Count 185 x10^3/uL (140-400) Neutrophils (%) (Auto) 69 % (31-73) Lymphocytes (%) (Auto) 16 % (24-48) Monocytes (%) (Auto) 10 % (0-9) Eosinophils (%) (Auto) 4 % (0-3) Basophils (%) (Auto) 1 % (0-3) Neutrophils # (Auto) 2.3 x10^3/uL (1.8-7.7) Lymphocytes # (Auto) 0.5 x10^3/uL (1.0-4.8) Monocytes # (Auto) 0.3 x10^3/uL (0.0-1.1) Eosinophils # (Auto) 0.1 x10^3/uL (0.0-0.7) Basophils # (Auto) 0.0 x10^3/uL (0.0-0.2) Troponin I High Sensitivity 8 ng/L (4-75) GN-Cus-M-Type Natriuretic Peptide 95 pg/mL (0-449) Thyroid Stimulating Hormone (TSH) 3.246 uIU/mL (0.358-3.74) Sodium Level 134 mmol/L (136-145) Potassium Level 3.7 mmol/L (3.5-5.1) Chloride Level 97 mmol/L (98-107) Carbon Dioxide Level 28 mmol/L (21-32) Anion Gap 9 (6-14) Blood Urea Nitrogen 25 mg/dL (8-26) Creatinine 1.1 mg/dL (0.7-1.3) Estimated GFR (Cockcroft-Gault) 63.9 BUN/Creatinine Ratio 23 (6-20) Glucose Level 92 mg/dL (70-99) Calcium Level 8.3 mg/dL (8.5-10.1) Magnesium Level 2.0 mg/dL (1.8-2.4) Total Bilirubin 0.5 mg/dL (0.2-1.0) Aspartate Amino Transf (AST/SGOT) 14 U/L (15-37) Alanine Aminotransferase (ALT/SGPT) 20 U/L (16-63) Alkaline Phosphatase 76 U/L (46-116) Total Protein 6.5 g/dL (6.4-8.2) Albumin 3.3 g/dL (3.4-5.0) Albumin/Globulin Ratio 1.0 (1.0-1.7) Lipase 59 U/L (73-393) Urine Collection Type Unknown Urine Color Yellow Urine Clarity Clear Urine pH 7.0 (<5.0-8.0) Urine Specific [place] 1.015 (1.000-1.030) Urine Protein Negative mg/dL (NEG-TRACE) Urine Glucose (UA) Negative mg/dL (NEG) Urine Ketones (Stick) Negative mg/dL (NEG) Urine Blood Negative (NEG) Urine Nitrite Negative (NEG) Urine Bilirubin Negative (NEG) Urine Urobilinogen Dipstick 1.0 mg/dL (0.2 mg/dL) Urine Leukocyte Esterase Negative (NEG) Urine RBC 1-2 /HPF (0-2) Urine WBC 0 /HPF (0-4) Urine Squamous Epithelial Cells Few /LPF Urine Bacteria 0 /HPF (0-FEW) Urine Hyaline Casts Moderate /HPF Urine Mucus Slight /LPF Urine Opiates Screen Neg (NEG) Urine Methadone Screen Neg (NEG) Urine Barbiturates Neg (NEG) Urine Phencyclidine Screen Neg (NEG) Urine Amphetamine/Methamphetamine Neg (NEG) Urine Benzodiazepines Screen Pos (NEG) Urine Cocaine Screen Neg (NEG) Urine Cannabinoids Screen Neg (NEG) Urine Ethyl Alcohol Neg (NEG) SARS-CoV-2 Antigen (Rapid) Negative (NEGATIVE) Test 11/06/21 20:00 11/06/21 22:58 11/07/21 09:36 Troponin I High Sensitivity 9 ng/L (4-75) 8 ng/L (4-75) White Blood Count 3.5 x10^3/uL (4.0-11.0) Red Blood Count 4.41 x10^6/uL (4.30-5.70) Hemoglobin 14.2 g/dL (13.0-17.5) Hematocrit 40.7 % (39.0-53.0) Mean Corpuscular Volume 92 fL (79-100) Mean Corpuscular Hemoglobin 32 pg (25-35) Mean Corpuscular Hemoglobin Concent 35 g/dL (31-37) Red Cell Distribution Width 15.0 % (11.5-14.5) Platelet Count 189 x10^3/uL (140-400) Neutrophils (%) (Auto) 70 % (31-73) Lymphocytes (%) (Auto) 17 % (24-48) Monocytes (%) (Auto) 10 % (0-9) Eosinophils (%) (Auto) 4 % (0-3) Basophils (%) (Auto) 1 % (0-3) Neutrophils # (Auto) 2.4 x10^3/uL (1.8-7.7) Lymphocytes # (Auto) 0.6 x10^3/uL (1.0-4.8) Monocytes # (Auto) 0.3 x10^3/uL (0.0-1.1) Eosinophils # (Auto) 0.1 x10^3/uL (0.0-0.7) Basophils # (Auto) 0.0 x10^3/uL (0.0-0.2) Sodium Level 137 mmol/L (136-145) Potassium Level 3.8 mmol/L (3.5-5.1) Chloride Level 99 mmol/L (98-107) Carbon Dioxide Level 27 mmol/L (21-32) Anion Gap 11 (6-14) Blood Urea Nitrogen 19 mg/dL (8-26) Creatinine 1.0 mg/dL (0.7-1.3) Estimated GFR (Cockcroft-Gault) 71.4 BUN/Creatinine Ratio 19 (6-20) Glucose Level 106 mg/dL (70-99) Calcium Level 8.6 mg/dL (8.5-10.1) Total Bilirubin 0.7 mg/dL (0.2-1.0) Aspartate Amino Transf (AST/SGOT) 15 U/L (15-37) Alanine Aminotransferase (ALT/SGPT) 20 U/L (16-63) Alkaline Phosphatase 86 U/L (46-116) Total Protein 7.3 g/dL (6.4-8.2) Albumin 3.6 g/dL (3.4-5.0) Albumin/Globulin Ratio 1.0 (1.0-1.7) Laboratory Tests Test 11/06/21 13:50 11/06/21 13:56 11/06/21 16:55 11/06/21 18:03 White Blood Count 3.4 x10^3/uL (4.0-11.0) Red Blood Count 3.98 x10^6/uL (4.30-5.70) Hemoglobin 12.8 g/dL (13.0-17.5) Hematocrit 36.7 % (39.0-53.0) Mean Corpuscular Volume 92 fL (79-100) Mean Corpuscular Hemoglobin 32 pg (25-35) Mean Corpuscular Hemoglobin Concent 35 g/dL (31-37) Red Cell Distribution Width 14.6 % (11.5-14.5) Platelet Count 185 x10^3/uL (140-400) Neutrophils (%) (Auto) 69 % (31-73) Lymphocytes (%) (Auto) 16 % (24-48) Monocytes (%) (Auto) 10 % (0-9) Eosinophils (%) (Auto) 4 % (0-3) Basophils (%) (Auto) 1 % (0-3) Neutrophils # (Auto) 2.3 x10^3/uL (1.8-7.7) Lymphocytes # (Auto) 0.5 x10^3/uL (1.0-4.8) Monocytes # (Auto) 0.3 x10^3/uL (0.0-1.1) Eosinophils # (Auto) 0.1 x10^3/uL (0.0-0.7) Basophils # (Auto) 0.0 x10^3/uL (0.0-0.2) Troponin I High Sensitivity 8 ng/L (4-75) PT-Upk-G-Type Natriuretic Peptide 95 pg/mL (0-449) Thyroid Stimulating Hormone (TSH) 3.246 uIU/mL (0.358-3.74) Sodium Level 134 mmol/L (136-145) Potassium Level 3.7 mmol/L (3.5-5.1) Chloride Level 97 mmol/L (98-107) Carbon Dioxide Level 28 mmol/L (21-32) Anion Gap 9 (6-14) Blood Urea Nitrogen 25 mg/dL (8-26) Creatinine 1.1 mg/dL (0.7-1.3) Estimated GFR (Cockcroft-Gault) 63.9 BUN/Creatinine Ratio 23 (6-20) Glucose Level 92 mg/dL (70-99) Calcium Level 8.3 mg/dL (8.5-10.1) Magnesium Level 2.0 mg/dL (1.8-2.4) Total Bilirubin 0.5 mg/dL (0.2-1.0) Aspartate Amino Transf (AST/SGOT) 14 U/L (15-37) Alanine Aminotransferase (ALT/SGPT) 20 U/L (16-63) Alkaline Phosphatase 76 U/L (46-116) Total Protein 6.5 g/dL (6.4-8.2) Albumin 3.3 g/dL (3.4-5.0) Albumin/Globulin Ratio 1.0 (1.0-1.7) Lipase 59 U/L (73-393) Urine Collection Type Unknown Urine Color Yellow Urine Clarity Clear Urine pH 7.0 (<5.0-8.0) Urine Specific [place] 1.015 (1.000-1.030) Urine Protein Negative mg/dL (NEG-TRACE) Urine Glucose (UA) Negative mg/dL (NEG) Urine Ketones (Stick) Negative mg/dL (NEG) Urine Blood Negative (NEG) Urine Nitrite Negative (NEG) Urine Bilirubin Negative (NEG) Urine Urobilinogen Dipstick 1.0 mg/dL (0.2 mg/dL) Urine Leukocyte Esterase Negative (NEG) Urine RBC 1-2 /HPF (0-2) Urine WBC 0 /HPF (0-4) Urine Squamous Epithelial Cells Few /LPF Urine Bacteria 0 /HPF (0-FEW) Urine Hyaline Casts Moderate /HPF Urine Mucus Slight /LPF Urine Opiates Screen Neg (NEG) Urine Methadone Screen Neg (NEG) Urine Barbiturates Neg (NEG) Urine Phencyclidine Screen Neg (NEG) Urine Amphetamine/Methamphetamine Neg (NEG) Urine Benzodiazepines Screen Pos (NEG) Urine Cocaine Screen Neg (NEG) Urine Cannabinoids Screen Neg (NEG) Urine Ethyl Alcohol Neg (NEG) SARS-CoV-2 Antigen (Rapid) Negative (NEGATIVE) Test 11/06/21 20:00 11/06/21 22:58 11/07/21 09:36 Troponin I High Sensitivity 9 ng/L (4-75) 8 ng/L (4-75) White Blood Count 3.5 x10^3/uL (4.0-11.0) Red Blood Count 4.41 x10^6/uL (4.30-5.70) Hemoglobin 14.2 g/dL (13.0-17.5) Hematocrit 40.7 % (39.0-53.0) Mean Corpuscular Volume 92 fL (79-100) Mean Corpuscular Hemoglobin 32 pg (25-35) Mean Corpuscular Hemoglobin Concent 35 g/dL (31-37) Red Cell Distribution Width 15.0 % (11.5-14.5) Platelet Count 189 x10^3/uL (140-400) Neutrophils (%) (Auto) 70 % (31-73) Lymphocytes (%) (Auto) 17 % (24-48) Monocytes (%) (Auto) 10 % (0-9) Eosinophils (%) (Auto) 4 % (0-3) Basophils (%) (Auto) 1 % (0-3) Neutrophils # (Auto) 2.4 x10^3/uL (1.8-7.7) Lymphocytes # (Auto) 0.6 x10^3/uL (1.0-4.8) Monocytes # (Auto) 0.3 x10^3/uL (0.0-1.1) Eosinophils # (Auto) 0.1 x10^3/uL (0.0-0.7) Basophils # (Auto) 0.0 x10^3/uL (0.0-0.2) Sodium Level 137 mmol/L (136-145) Potassium Level 3.8 mmol/L (3.5-5.1) Chloride Level 99 mmol/L (98-107) Carbon Dioxide Level 27 mmol/L (21-32) Anion Gap 11 (6-14) Blood Urea Nitrogen 19 mg/dL (8-26) Creatinine 1.0 mg/dL (0.7-1.3) Estimated GFR (Cockcroft-Gault) 71.4 BUN/Creatinine Ratio 19 (6-20) Glucose Level 106 mg/dL (70-99) Calcium Level 8.6 mg/dL (8.5-10.1) Total Bilirubin 0.7 mg/dL (0.2-1.0) Aspartate Amino Transf (AST/SGOT) 15 U/L (15-37) Alanine Aminotransferase (ALT/SGPT) 20 U/L (16-63) Alkaline Phosphatase 86 U/L (46-116) Total Protein 7.3 g/dL (6.4-8.2) Albumin 3.6 g/dL (3.4-5.0) Albumin/Globulin Ratio 1.0 (1.0-1.7) Brief Hospital Course Mr. Vitale is a 81 old male, was a the library and went unresponsive, EMS found his HR 18, gave atropine, then HR 55 Discharge Information Condition at Discharge: Improved Follow Up: Weeks Disposition/Orders: D/C to Home Scheduled Alfuzosin Hcl (Alfuzosin Hcl) 10 Mg Tab.er.24h, 10 MG PO DAILY for bph, (Reported) Entered as Reported by: JAMES PAIZ RN on 12/24/201300 Last Action: Converted on 11/06/211737 by ESTEPHANIE SAMPSON Ascorbic Acid (Vitamin C) 500 Mg Capsule, 1,000 MG PO DAILY for bone health, (Reported) Entered as Reported by: JAMES PAIZ RN on 12/24/201300 Last Action: HELD on 11/06/211737 by ESTEPHANIE SAMPSON Curcumin (Curcumin) 10 Gm Powder, 600 MG MC DAILY for anti-inflammatory, (Reported) Entered as Reported by: JAMES PAIZ RN on 12/24/201300 Last Action: HELD on 11/06/211737 by ESTEPHANIE SAMPSON Cyanocobalamin (Vitamin B-12) (Vitamin B-12) 50 Mcg Tablet, 6 MCG PO DAILY for Vitamin, (Reported) Entered as Reported by: JAMES PAIZ RN on 12/24/201300 Last Action: HELD on 11/06/211737 by ESTEPHANIE SAMPSON Docusate Sodium (Colace) 100 Mg Capsule, 2 CAP PO TID for Soften stools for 30 Days, #180 Ref 0 (Reported) Entered as Reported by: JAMES PAIZ RN on 12/24/201300 Last Action: Continued on 11/06/211737 by ESTEPHANIE SAMPSON Dutasteride (Avodart) 0.5 Mg Capsule, 0.5 MG PO DAILY for bph, (Reported) Entered as Reported by: JAMES PAIZ RN on 12/24/201300 Last Action: Continued on 11/06/211737 by ESTEPHANIE SAMPSON Glucosam/Chondroit/C/Manganese (Cosamin Ds Capsule) 1 Each Capsule, 3 EACH PO DAILY for joint health, (Reported) Entered as Reported by: JAMES PAIZ RN on 12/24/201300 Last Action: HELD on 11/06/211737 by ESTEPHANIE SAMPSON Lactobacillus Combo No.10 (Probiotic) 1 Each Capsule, 2 TAB PO DAILY for aid in digestion for 30 Days, #60 Ref 0 (Reported) Entered as Reported by: JAMES PAIZ RN on 12/24/201300 Last Action: HELD on 11/06/211737 by ESTEPHANIE SAMPSON Magnesium Oxide (Magnesium) 400 Mg Capsule, 1 CAP PO DAILY for vitamin for 30 Days, #30 Ref 0 (Reported) Entered as Reported by: JAMES PAIZ RN on 12/24/201300 Last Action: HELD on 11/06/211737 by ESTEPHANIE SAMPSON Melatonin (Melatonin) 1 Mg Tablet, 9 TAB PO QHS for sleep for 30 Days, #270 Ref 0 (Reported) Entered as Reported by: JAMES PAIZ RN on 1/30/21 1301 Last Action: HELD on 11/06/211737 by ESTEPHANIE SAMPSON Mirabegron (Myrbetriq) 50 Mg Tab.er.24h, 50 MG PO DAILY for overactive bladder, (Reported) Entered as Reported by: JAMES PAIZ RN on 12/24/20 130 Last Action: Continued on 11/06/211737 by ESTEPHANIE SAMPSON Multivitamin (Multi Vitamin Daily) 1 Each Tablet, 1 TAB PO DAILY for multivitamin for 30 Days, #30 Ref 0 (Reported) Entered as Reported by: JAMES PAIZ RN on 12/24/201300 Last Action: HELD on 11/06/211737 by ESTEPHANIE SAMPSON Mv-Mn/Iron/Fa/Herbal Cmplx#190 (Vitamin D3 Complete Caplet) 1 Each Tablet, 2,000 INTLU PO DAILY for bone health, (Reported) Entered as Reported by: JAMES PAIZ RN on 12/24/201300 Last Action: HELD on 11/06/211737 by ESTEPHANIE SAMPSON Harrah-3S/Dha/Epa/Fish Oil/D3 (Cardio [place] Benefits Softgel) 1 Each Capsule, 1,100 MG PO DAILY for heart health, (Reported) Entered as Reported by: JAMES PAIZ RN on 12/24/201300 Last Action: HELD on 11/06/211737 by ESTEPHANIE SAMPSON Omeprazole (Omeprazole) 20 Mg Capsule.dr, 20 MG PO BIDACBL for GERD, (Reported) Entered as Reported by: JAMES PAIZ RN on 12/24/201300 Last Action: Converted on 11/06/211737 by ESTEPHANIE SAMPSON Phytosterol/Om-3/Dha/Epa/Fish (Cardiosterol Capsule) 1 Each Capsule, 4 EACH PO DAILY for heart health, (Reported) Entered as Reported by: JAMES PAIZ RN on 12/24/201300 Last Action: HELD on 11/06/211737 by ESTEPHANIE SAMPSON Trazodone Hcl (Trazodone Hcl) 50 Mg Tablet, 3 TAB PO QHS for sleep, #30 Ref 1 (Reported) Entered as Reported by: JAMES PAIZ RN on 12/24/201300 Last Action: Continued on 11/06/211737 by ESTEPHANIE SAMPSON Ubiquinone (Ultra Coq10) 75 Mg Capsule, 300 MG PO DAILY for heart health, (Reported) Entered as Reported by: JAMES PAIZ, RN on 12/24/20 1301 Last Action: HELD on 11/06/21 1738 by ESTEPHANIE SAMPSON Patient Instructions Patient Instructions > 30 min face to face done x2 Justicifation of Admission Dx: Justifications for Admission: Justification of Admission Dx: Yes ESTEPHANIE SAMPSON MD Nov 07, 2021 11:10
--- NOTE | 2021-11-07 11:26 | PDOC2 ---
BROWN RAMIREZ [employer] 11/07/21 1126: CARDIAC CONSULT DATE OF CONSULT Date of Consult DATE: 11/07/21 TIME: 11:12 REASON FOR CONSULT Reason for Consult: bradycardia REFERRING PHYSICIAN Referring Physician: Dillon SOURCE Source: Chart review, Patient HISTORY OF PRESENT ILLNESS HISTORY OF PRESENT ILLNESS This is a pleasant 81 yo male admitted for complains of dizziness. Lives in an assisted living. He was in a video place and browsing on videos to take and was beinding over and tried to stand up and felt significantly dizzy. No passing out or any lost of consciousness. Denies any chest pain SOA or palpitations. Reports no past hx of arrhythmia, CVA nor CAD. COuld not ascertain how much fluids he drank that day. He said he takes BP meds but per staff still need to verify his medications and jessica was listed. No vertigo, unilateral weakness and no issues with visual or auditory disturbances. No DM and no hx of seizures. EMS did noted him to have HR in the 20s and was given atropine and none further afterwards. PAST MEDICAL HISTORY Cardiovascular: HTN GI: GERD Psych: Anxiety Musculoskeletal: Osteoarthritis, Other (lumbar fracture) Renal/: Benign prostatic enlarg. PAST SURGICAL HISTORY Past Surgical History: Total hip replacement (bilateral) FAMILY HISTORY Family History: Hypertension SOCIAL HISTORY Smoke: No ALCOHOL: none Drugs: None Lives: Alone CURRENT MEDICATIONS CURRENT MEDICATIONS Current Medications Medications (Trade) Dose Ordered Sig/Aeston Route PRN Reason Start Time Stop Time Status Last Admin Dose Admin Potassium Chloride (Klor-Con) 40 meq 1X ONCE PO 11/06/21 17:45 11/06/21 17:46 DC 11/06/21 20:42 Docusate Sodium (Colace) 200 mg TID PO 11/06/21 21:00 11/07/21 08:28 Mirabegron (Myrbetriq) 50 mg DAILY PO 11/07/21 09:00 11/07/21 08:23 Trazodone HCl (Desyrel) 150 mg QHS PO 11/06/21 21:00 11/06/21 20:46 Tamsulosin HCl (Flomax) 0.4 mg DAILY PO 11/07/21 09:00 11/07/21 08:23 Pantoprazole Sodium (Protonix) 40 mg BIDACBL PO 11/07/21 07:30 11/07/21 08:23 Lisinopril (Prinivil) 10 mg DAILY PO 11/07/21 08:00 11/07/21 08:23 ALLERGIES ALLERGIES: Coded Allergies: No Known Drug Allergies (Unverified , 12/23/20) ROS Review of System 14 point ROS evaluated with pertinent positives noted per HPI PHYSICAL EXAM General: Alert, Oriented X3, Cooperative, No acute distress HEENT: Atraumatic, Mucous membr. moist/pink Lungs: Clear to auscultation, Normal air movement Heart: Regular rate (SR), Normal S1, Normal S2, No murmurs Abdomen: Soft, No tenderness Extremities: No cyanosis, No edema Skin: No breakdown, No significant lesion Neuro: Normal speech, Sensation intact Psych/Mental Status: Mental status NL, Mood NL MUSCULOSKELETAL: Osteoarthritic changes both hands VITALS/I&O VITALS/I&O: Vital Signs Date Time Temp Pulse Resp B/P (MAP) Pulse Ox O2 Delivery O2 Flow Rate FiO2 11/07/21 10:00 52 18 126/63 (84) 100 Room Air 11/07/21 08:00 97.7 97.7 I & O 11/06/21 11/06/21 11/07/21 15:00 23:00 07:00 Intake Total 200 ml Balance 200 ml LABS Lab: Laboratory Tests Test 11/06/21 13:50 11/06/21 13:56 11/06/21 16:55 11/06/21 18:03 White Blood Count 3.4 x10^3/uL (4.0-11.0) L Red Blood Count 3.98 x10^6/uL (4.30-5.70) L Hemoglobin 12.8 g/dL (13.0-17.5) L Hematocrit 36.7 % (39.0-53.0) L Mean Corpuscular Volume 92 fL (79-100) Mean Corpuscular Hemoglobin 32 pg (25-35) Mean Corpuscular Hemoglobin Concent 35 g/dL (31-37) Red Cell Distribution Width 14.6 % (11.5-14.5) H Platelet Count 185 x10^3/uL (140-400) Neutrophils (%) (Auto) 69 % (31-73) Lymphocytes (%) (Auto) 16 % (24-48) L Monocytes (%) (Auto) 10 % (0-9) H Eosinophils (%) (Auto) 4 % (0-3) H Basophils (%) (Auto) 1 % (0-3) Neutrophils # (Auto) 2.3 x10^3/uL (1.8-7.7) Lymphocytes # (Auto) 0.5 x10^3/uL (1.0-4.8) L Monocytes # (Auto) 0.3 x10^3/uL (0.0-1.1) Eosinophils # (Auto) 0.1 x10^3/uL (0.0-0.7) Basophils # (Auto) 0.0 x10^3/uL (0.0-0.2) Troponin I High Sensitivity 8 ng/L (4-75) IK-Dtn-A-Type Natriuretic Peptide 95 pg/mL (0-449) Thyroid Stimulating Hormone (TSH) 3.246 uIU/mL (0.358-3.74) Sodium Level 134 mmol/L (136-145) L Potassium Level 3.7 mmol/L (3.5-5.1) Chloride Level 97 mmol/L (98-107) L Carbon Dioxide Level 28 mmol/L (21-32) Anion Gap 9 (6-14) Blood Urea Nitrogen 25 mg/dL (8-26) Creatinine 1.1 mg/dL (0.7-1.3) Estimated GFR (Cockcroft-Gault) 63.9 BUN/Creatinine Ratio 23 (6-20) H Glucose Level 92 mg/dL (70-99) Calcium Level 8.3 mg/dL (8.5-10.1) L Magnesium Level 2.0 mg/dL (1.8-2.4) Total Bilirubin 0.5 mg/dL (0.2-1.0) Aspartate Amino Transferase (AST) 14 U/L (15-37) L Alanine Aminotransferase (ALT) 20 U/L (16-63) Alkaline Phosphatase 76 U/L (46-116) Total Protein 6.5 g/dL (6.4-8.2) Albumin 3.3 g/dL (3.4-5.0) L Albumin/Globulin Ratio 1.0 (1.0-1.7) Lipase 59 U/L (73-393) L Urine Collection Type Unknown Urine Color Yellow Urine Clarity Clear Urine pH 7.0 (<5.0-8.0) Urine Specific [place] 1.015 (1.000-1.030) Urine Protein Negative mg/dL (NEG-TRACE) Urine Glucose (UA) Negative mg/dL (NEG) Urine Ketones (Stick) Negative mg/dL (NEG) Urine Blood Negative (NEG) Urine Nitrite Negative (NEG) Urine Bilirubin Negative (NEG) Urine Urobilinogen Dipstick 1.0 mg/dL (0.2 mg/dL) Urine Leukocyte Esterase Negative (NEG) Urine RBC 1-2 /HPF (0-2) Urine WBC 0 /HPF (0-4) Urine Squamous Epithelial Cells Few /LPF Urine Bacteria 0 /HPF (0-FEW) Urine Hyaline Casts Moderate /HPF Urine Mucus Slight /LPF Urine Opiates Screen Neg (NEG) Urine Methadone Screen Neg (NEG) Urine Barbiturates Neg (NEG) Urine Phencyclidine Screen Neg (NEG) Urine Amphetamine/Methamphetamine Neg (NEG) Urine Benzodiazepines Screen Pos (NEG) Urine Cocaine Screen Neg (NEG) Urine Cannabinoids Screen Neg (NEG) Urine Ethyl Alcohol Neg (NEG) SARS-CoV-2 Antigen (Rapid) Negative (NEGATIVE) Test 11/06/21 20:00 11/06/21 22:58 11/07/21 09:36 Troponin I High Sensitivity 9 ng/L (4-75) 8 ng/L (4-75) White Blood Count 3.5 x10^3/uL (4.0-11.0) L Red Blood Count 4.41 x10^6/uL (4.30-5.70) Hemoglobin 14.2 g/dL (13.0-17.5) Hematocrit 40.7 % (39.0-53.0) Mean Corpuscular Volume 92 fL (79-100) Mean Corpuscular Hemoglobin 32 pg (25-35) Mean Corpuscular Hemoglobin Concent 35 g/dL (31-37) Red Cell Distribution Width 15.0 % (11.5-14.5) H Platelet Count 189 x10^3/uL (140-400) Neutrophils (%) (Auto) 70 % (31-73) Lymphocytes (%) (Auto) 17 % (24-48) L Monocytes (%) (Auto) 10 % (0-9) H Eosinophils (%) (Auto) 4 % (0-3) H Basophils (%) (Auto) 1 % (0-3) Neutrophils # (Auto) 2.4 x10^3/uL (1.8-7.7) Lymphocytes # (Auto) 0.6 x10^3/uL (1.0-4.8) L Monocytes # (Auto) 0.3 x10^3/uL (0.0-1.1) Eosinophils # (Auto) 0.1 x10^3/uL (0.0-0.7) Basophils # (Auto) 0.0 x10^3/uL (0.0-0.2) Sodium Level 137 mmol/L (136-145) Potassium Level 3.8 mmol/L (3.5-5.1) Chloride Level 99 mmol/L (98-107) Carbon Dioxide Level 27 mmol/L (21-32) Anion Gap 11 (6-14) Blood Urea Nitrogen 19 mg/dL (8-26) Creatinine 1.0 mg/dL (0.7-1.3) Estimated GFR (Cockcroft-Gault) 71.4 BUN/Creatinine Ratio 19 (6-20) Glucose Level 106 mg/dL (70-99) H Calcium Level 8.6 mg/dL (8.5-10.1) Total Bilirubin 0.7 mg/dL (0.2-1.0) Aspartate Amino Transferase (AST) 15 U/L (15-37) Alanine Aminotransferase (ALT) 20 U/L (16-63) Alkaline Phosphatase 86 U/L (46-116) Total Protein 7.3 g/dL (6.4-8.2) Albumin 3.6 g/dL (3.4-5.0) Albumin/Globulin Ratio 1.0 (1.0-1.7) Laboratory Tests 11/06/21 13:50 11/07/21 09:36 Laboratory Tests 11/06/21 13:56 11/07/21 09:36 ASSESSMENT/PLAN ASSESSMENT/PLAN 1. Presyncope: possibly vasovagal, negative for CSH 2. Bradycardia: nos trips available noted HR in the 20s resolved after atropine. Could not ascertain any heart blocks or pausesSR currently 60s none further overnight 3. HTN: unclear what BP meds he takes 4. CVA: chronic per neurology 5. Possible Orthostasis Recommendations 1. Will clarify what BP meds he takes and will DC any AV jeff blocking agents and provide alternative 2. Will consider for [facility] 3. TTE today 4. Follow up with Dr. Mooney on December 22 at 2 PM NIDIA MOONEY MD 11/07/21 1428: CARDIAC CONSULT ASSESSMENT/PLAN ASSESSMENT/PLAN Pt. seen and examined. Agree with above inpatient services director note. Supportive care. Echo wnl. Outpt [facility]. Thanks BROWN RAMIREZ APRN Nov 07, 2021 11:26 NIDIA MOONEY MD Nov 07, 2021 14:28
[2021-11-07] MEDS ORDERED: ASPI-630 PO (16:23)
--- NOTE | 2021-11-07 16:32 | NUR ---
Discharge Note: BREANNA WALTER[facility] Discharge instructions and discharge home medications reviewed with Patient, Muriel Marc at [facility] a copy faxed and send with patien. All questions have been answered and understanding verbalized. The following instructions and handouts were given: Event monitor Discontinued iv line and catheter intact. Patient discharged to [facility] with self-care
--- NOTE | 2021-11-07 16:35 | NUR ---
Discharge Note: SIMONE [facility]TER[facility] [place] [facility] Discharge instructions and discharge home medications reviewed with Patient and a copy given. All questions have been answered and understanding verbalized. The following instructions and handouts were given: syncope. Emphasized need to follow up with cardiology at [facility] and Primary care doctor. Discontinued iv lines and catheter intact. Patient discharged to home with self-care.
--- NOTE | 2021-11-07 18:00 | CARD ---
MR#: [id number] Date of Study: 11/07/2021 Ordering Physician: BROWN RAMIREZ, Referring Physician: BROWN RAMIREZ Tech: Iliana White [facility] APPROVED REPORT EXAM: Two-dimensional and M-mode echocardiogram with Doppler and color Doppler. Other Information Quality : Technically LimitedHR: 54bpm Rhythm : NSR INDICATION Syncope RISK FACTORS Hypertension 2D DIMENSIONS RVDd3.8 (2.9-3.5cm)Left Atrium(2D)4.1 (1.6-4.0cm) IVSd1.0 (0.7-1.1cm)Aortic Root(2D)3.8 (2.0-3.7cm) LVDd5.0 (3.9-5.9cm)LVOT Diameter2.5 (1.8-2.4cm) PWd1.0 (0.7-1.1cm)LVDs3.0 (2.5-4.0cm) FS (%) 40.2 %SV85.1 ml LVEF(%)70.6 (>50%) Aortic Valve AoV Peak Jaquan.131.8cm/Eleni Peak GR.7.0mmHg TDI Lateral E' P. V12.49cm/sMedial E' P. V11.13cm/s Tricuspid Valve TR P. [id number]/sTR Peak Gr.21mmHg LEFT VENTRICLE The left ventricle is normal size. There is normal left ventricular wall thickness. The left ventricu lar systolic function is normal. Estimated ejection fraction 55-60% There is normal LV segmental wal l motion. Transmitral Doppler flow pattern is Grade I-abnormal relaxation pattern. RIGHT VENTRICLE The right ventricle is normal size. There is normal right ventricular wall thickness. The right ventr icular systolic function is normal. ATRIA The left atrium size is normal. The right atrium size is normal. The interatrial septum is intact wit h no evidence for an atrial septal defect or patent foramen ovale as noted on 2-D or Doppler imaging. AORTIC VALVE The aortic valve is normal in structure and function. Doppler and Color Flow revealed no significant aortic regurgitation. There is no significant aortic valvular stenosis. MITRAL VALVE The mitral valve is normal in structure and function. There is no evidence of mitral valve prolapse. There is no mitral valve stenosis. Doppler and Color-flow revealed mild mitral regurgitation. TRICUSPID VALVE The tricuspid valve is normal in structure and function. Doppler and Color Flow revealed mild tricusp id regurgitation. Estimated PAP 25 mmHg. There is no tricuspid valve stenosis. PULMONIC VALVE The pulmonary valve is normal in structure and function. Doppler and Color Flow revealed no pulmonic valvular regurgitation. GREAT VESSELS The aortic root is normal in size. The ascending aorta is normal in size. The IVC is normal in size a nd collapses >50% with inspiration. PERICARDIAL EFFUSION There is no evidence of significant pericardial effusion. Critical Notification Critical Value: No <Conclusion> The left ventricular systolic function is normal. Estimated ejection fraction 55-60% There is normal LV segmental wall motion. Mild mitral regurgitation. Mild tricuspid regurgitation. Estimated PAP 25 mmHg. There is no evidence of significant pericardial effusion. Signed by : Rafal Brown, Electronically Approved : 11/07/2021 17:59:59
== END 2021-11-07 22:33 | disposition home or self-care (01) | DRG 310 ==
LOC: ER 13:35 → 1 WEST ICU 16:04
PROVIDERS: ADMIT Internal Medicine; ATTEND Internal Medicine
DX: I44.0 Atrioventricular block, first degree (principal); F41.9 Anxiety disorder, unspecified; G20 Parkinson's disease; G47.00 Insomnia, unspecified; I10 Essential (primary) hypertension; N31.9 Neuromuscular dysfunction of bladder, unspecified; N40.0 Benign prostatic hyperplasia without lower urinary tract symptoms; Z82.0 Family history of epilepsy and other diseases of the nervous system; Z82.49 Family history of ischemic heart disease and other diseases of the circulatory system; Z86.73 Personal history of transient ischemic attack (TIA), and cerebral infarction without residual deficits; Z96.643 Presence of artificial hip joint, bilateral; K21.9 Gastro-esophageal reflux disease without esophagitis; M19.90 Unspecified osteoarthritis, unspecified site; Z20.822 Contact with and (suspected) exposure to COVID-19
CPT/HCPCS: 36415; 70450; 71045; 80053; 80307; 81001; 83690; 83735; 83880; 84443; 84484; 85025; 87426; 93005; 93306; 93880; U0003; U0005; 97116-GP; 99285-25; G0378